=== PATIENT | male | born 1985 | race Caucasian/White ===

== ENCOUNTER 2022-12-01 20:31 | Emergency (ER) | payer MEDICAID, SELFPAY ==
--- NOTE | ~2022-12-01 | CT_ITS ---
EXAMINATION: CT abdomen pelvis wo con DATE: 12/02/2022 00:57 INDICATION: Abdominal pain. TECHNIQUE: Computed tomography (CT) of the abdomen and pelvis was performed without intravenous contr ast. Automated exposure control and iterative reconstruction technique were employed. The dose-length product was 1882.53 mGy-cm. COMPARISON: None. FINDINGS: The visualized portions of the lung bases demonstrate mild atelectasis. No pleural effusion . The heart size is normal. No pericardial effusion. The liver is normal. There are changes of cholec ystectomy. The spleen, pancreas, adrenal glands, and kidneys are normal. There is a filter in the inf erior vena cava. There is a widemouthed ventral hernia containing nonobstructed small bowel. There ar e surgical changes of the colon and small bowel. There are no dilated loops of bowel. There are no pa thologically enlarged lymph nodes. There is no free intraperitoneal fluid. There is mild thoracic spo ndylosis and moderate lumbar spondylosis. There is mild chronic anterior wedging of multiple thoracic vertebral bodies. IMPRESSION: 1. Widemouthed ventral hernia containing nonobstructed small bowel. Reviewed, dictated and finalized at location A.
[2022-12-01 20:36] VITALS: BP 137/79; PULSE 97; RESP 15; TEMP 36.4; O2SAT 100
[2022-12-01 21:04] LABS: Basophils Percent Auto 0.1 % (0.2-1.2); Eosinophils Absolute Auto 0.1 K/mm3 (0-0.3); Eosinophils Percent Auto 0.5 % (0-4.4); Hemoglobin 10.6 g/dL (14.0-18.0); Immature Granulocyte Absolute 0.16 K/mm3 (0.00-0.031); Immature Granulocyte Percent A 1.4 % (0-0.5); Immature Platelet Fraction Pct 8.9 % (0.9-11.2); Lymphocytes Absolute Auto 1.49 K/mm3 (0.9-3.2); Lymphocytes Percent Auto 13.2 % (18.3-44.2); Mean Corpuscular HGB Conc 28.6 g/dl (32-36); Mean Corpuscular Hemoglobin 20.9 pg (26-34); Mean Corpuscular Volume 72.8 fl (80-100); Monocytes Absolute Auto 0.7 K/mm3 (0.1-0.6); Neutrophils Absolute Auto 8.9 K/mm3 (1.3-6.7); Neutrophils Percent Auto 78.8 % (45.5-73.1); Platelet Count Result 118 k/mm3 (150-375); Red Blood Count 5.08 M/mm3 (4.6-6.20); Red Cell Distribution Width 22.5 % (11.5-14.5); White Blood Count 11.3 K/mm3 (4.5-10.0)
[2022-12-01 21:11] LABS: Appearance Urine Clear (Clear); Bacteria Urine None Seen /hpf; Bilirubin Urine Negative (Negative); Blood Urine Negative (Negative); Color Urine Yellow (Yellow); Glucose Urine UA 3+ mg/dL (Negative); Ketones Urine Negative (Negative); Leukocyte Esterase Ur Negative LEU/UL (Negative); Nitrate Urine Negative (Negative); Non Pathogenic Casts 0-2; Protein Urine Trace mg/dL (Negative); RBC Urine 0-2 /hpf (0-2); Squamous Epithelial Cell Urine None seen /hpf (Few); Urobilinogen Urine 0.2 mg/dL (<2.0); WBC Urine 0-5 /hpf; pH Urine 5.5 (5.0-9.0)
[2022-12-01 21:13] LABS: Alanine Aminotransferase 37 U/L (6-50); Albumin Level 4.2 g/dL (3.5-5.1); Alkaline Phosphatase 150 U/L (38-126); Anion Gap 8 mmol/L (8-16); Aspartate Amino Transferase 25 U/L (17-59); Bilirubin,Total 0.5 mg/dL (0.2-1.3); Blood Urea Nitrogen 17 mg/dL (9-20); Calcium 8.5 mg/dL (8.4-10.2); Carbon Dioxide 25 mmol/L (22-30); Chloride 101 mmol/L (98-107); Estimated CRCL calculation 131 ml/min; Estimated Glomerular Filt Rate > 60; Glucose 268 mg/dL (65-110); Lipase 290 U/L (23-300); Potassium 3.6 mmol/L (3.4-5.0); Sodium 134 mmol/L (137-145)
[2022-12-01 21:16] LABS: Add Urine Microscopic? YES; Specific Grav Ur 1.041 (1.001-1.035)
[2022-12-01 21:20] LABS: Platelet Estimate Decreased (Adequate)
[2022-12-01 21:21] LABS: Anisocytosis 3+ (NORMAL); Hypochromasia 1+ (NORMAL); Schistocytes None Seen (NORMAL)
--- NOTE | 2022-12-02 00:31 | PC.NURSE ---
See downtime charting regarding meds given or pulled prior to 2315 on 12/01/22.
--- NOTE | 2022-12-02 00:31 | PC.NURSE ---
This RN took report from Arabella SMYTH and assumed care of pt @[id number].
[2022-12-02 00:33] VITALS: BP 134/79; PULSE 101; RESP 14; O2SAT 100
--- NOTE | 2022-12-02 00:37 | ED.GENADULT ---
HPI - General Adult General Chief complaint: Abdominal Pain <Gustavo King PA-C - Last Filed: 12/02/22 04:14> Stated complaint: diarrhea/ulcerative colitis <Gustavo King PA-C - Last Filed: 12/02/22 04:14> Time Seen by Provider: 12/02/22 00:33 <Gustavo King PA-C - Last Filed: 12/02/22 04:14> Source: patient <Gustavo King PA-C - Last Filed: 12/02/22 04:14> Mode of arrival: ambulatory <DORCAS Barnett Last Filed: 12/02/22 04:14> Limitations: no limitations <Gustavo King PA-C - Last Filed: 12/02/22 04:14> History of Present Illness HPI narrative: This is a 37-year-old male with PMH of insulin-dependent diabetes, UC who presents to the ED with chief complaint of abdominal pain and N/V/D beginning 8 hours prior to arrival. 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 He reports 20 episodes of bowel movements that are loose. He reports a little bit of blood on the toilet paper during the last bowel movement. Reports multiple episodes of vomiting without hematemesis. reports abdominal pain is primarily on the right side and does not radiate. Past surgical history of colectomy, appendectomy <DORCAS Barnett Last Filed: 12/02/22 04:14> Related Data Allergies/adverse reactions: Allergies Allergy/AdvReac Type Severity Reaction Status Date / Time iohexol Allergy Severe Anaphylaxis Verified 12/02/22 00:58 [From contrast - CT, X-RAY] Sulfa (Sulfonamide Allergy Dyspnea / Verified 12/02/22 01:02 Antibiotics) SOB dicyclomine [From Bentyl] AdvReac Dyspnea / Verified 12/02/22 01:02 SOB ketorolac [From Toradol] AdvReac Dyspnea / Verified 12/02/22 01:02 SOB lorazepam [From Ativan] AdvReac Dyspnea / Verified 12/02/22 01:02 SOB meperidine [From Demerol] AdvReac Dyspnea / Verified 12/02/22 01:02 SOB metoclopramide [From Reglan] AdvReac Dyspnea / Verified 12/02/22 01:02 SOB prochlorperazine AdvReac Dyspnea / Verified 12/02/22 01:02 [From Compazine] SOB promethazine [From Phenergan] AdvReac Dyspnea / Verified 12/02/22 01:02 SOB <Gustavo King PA-C - Last Filed: 12/02/22 04:14> Review of Systems Review of Systems: All systems as dictated in HPI <Gustavo King PA-C - Last Filed: 12/02/22 04:14> Exam Narrative: GENERAL: Well-appearing, well-nourished, and in no acute distress. HEAD: Normocephalic, atraumatic. EYES: PERRLA and EOMI. ENT: Nares clear, no rhinorrhea or epistaxis. Mucous membranes moist. Oropharynx without tonsillar hypertrophy exudate or other lesions. NECK: Supple. No adenopathy or masses. CHEST: No respiratory distress. Clear to auscultation. No wheezes rales or rhonchi HEART: Regular rate and rhythm. No murmur heard. Normal peripheral pulses. ABDOMEN: Obese abdomen. Mild tenderness in the periumbilical abdomen. Soft, otherwise nontender, nondistended, normal active bowel sounds. MSK: Normal range of motion. No edema. SKIN: Warm, dry, no rash. NEURO: Alert and oriented x3. No focal deficits. PSYCH: Normal mood and affect. <Gustavo King PA-C - Last Filed: 12/02/22 04:14> Course SCRUM COACH/PA Physician Supervision This is a was performed by both a physician and an APC. I performed all aspects of the MDM as documented w/ the following additions: 37-year-old male with ulcerative colitis and chronic abdominal pain presenting for abdominal pain. CT negative. Patient improved with symptomatic treatment. Patient discharged with outpatient follow-up.All questions answered. Patient in agreement w/ disposition. <Myron Mora MD - Last Filed: 12/04/22 03:38> Vital Signs Vital signs: Vital Signs Temperature 97.6 F 12/01/22 20:36 Pulse Rate 97 12/01/22 20:36 Respiratory Rate 15 12/01/22 20:36 Blood Pressure 137/79 12/01/22 20:36 Pulse Oximetry 100 12/01/22 20:36 Oxygen Delivery Room Air 12/01/22 20
[2022-12-02] MEDS: HYDROmorphone HCL INJ (*CRX) 1 MG/ML SYR 0.5 MG IV PUSH ×2 (01:02→03:01)
[2022-12-02] MEDS: SODIUM CHLORIDE 0.9% IV 1,000 ML 999 ML IV CONT (01:03)
[2022-12-02] MEDS: diphenhydrAMINE HCl INJ 50 MG/ML VIAL 25 MG IV PUSH ×2 (01:03→03:01)
[2022-12-02] MEDS: ONDANSETRON INJ 4 MG/2 ML VIAL IV PUSH ×2 (01:03→03:01)
[2022-12-02 04:02] VITALS: BP 130/83; PULSE 97; RESP 15; O2SAT 100
== END 2022-12-02 05:25 | disposition home or self-care (01) ==
PROVIDERS: Emergency Medicine; Emergency Provider Physician Assistant
DX: K58.9 Irritable bowel syndrome, unspecified (principal); E11.9 Type 2 diabetes mellitus without complications; Z90.49 Acquired absence of other specified parts of digestive tract; K43.9 Ventral hernia without obstruction or gangrene
CPT/HCPCS: 36415; 74176; 80053; 81001; 83690; 85025; 85055; 96361; 96374; 96375; 96376; 99285; J1170; J1200; J2405; J7030

== ENCOUNTER 2022-12-04 21:40 | Emergency (ER) | payer MEDICAID, SELFPAY ==
--- NOTE | ~2022-12-04 | CT_ITS ---
EXAMINATION: CT abdomen pelvis wo con DATE: 12/05/2022 00:55 INDICATION: Abdominal pain. TECHNIQUE: Computed tomography (CT) of the abdomen and pelvis was performed without intravenous contr ast. Automated exposure control and iterative reconstruction technique were employed. The dose-length product was 1783.54 mGy-cm. COMPARISON: CT abdomen and pelvis 12/02/2022 FINDINGS: The visualized portions of the lung bases demonstrate mild atelectasis. No pleural effusion . The heart size is normal. No pericardial effusion. The liver is normal. There are changes of cholec ystectomy. The spleen, pancreas, adrenal glands, and kidneys are normal. There is a filter in the inf erior vena cava. There is a widemouthed ventral hernia containing nonobstructed small bowel. There ar e surgical changes of the bowel. There are no pathologically enlarged lymph nodes. There is no free i ntraperitoneal fluid. There is mild thoracic and lumbar spondylosis. There is mild chronic anterior w edging of T11 and T12 vertebral bodies. IMPRESSION: 1. Widemouthed ventral hernia containing nonobstructed small bowel. Reviewed, dictated and finalized at location A.
[2022-12-04 21:44] VITALS: BP 121/92; PULSE 121; RESP 16; TEMP 36.2; O2SAT 100
--- NOTE | 2022-12-04 21:48 | ECG_ITS ---
Measurements Intervals [place] Rate: 121 P: 51 NC: 166 QRS: 22 QRSD: 112 T: 55 QT: 309 QTc: 440 Interpretive Statements SINUS TACHYCARDIA OTHERWISE NORMAL eCG NO PREVIOUS ECG AVAILABLE FOR COMPARISON Electronically Signed On 12-05-2022 14:41:49 CDT by Syed Leggett M.D.
--- NOTE | 2022-12-04 23:48 | ED.ABDPAIN ---
HPI - Abdominal Pain General Chief Complaint: Abdominal Pain Stated Complaint: abd pain Time Seen by Provider: 12/04/22 23:31 History of Present Illness HPI narrative: 37-year-old male with history of ulcerative colitis presented the emergency department for evaluation of worsening lower abdominal pain. 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 Patient was seen in emergency department few days ago for abdominal pain. Patient had a negative work-up at that time. Patient does have prednisone that was prescribed by his GI physician but states he is having excessive nausea and vomiting and is unable to keep any of the medications down. Patient presents to the ED seeking rehydration pain control and nausea control. Patient does have follow-up scheduled with his GI physician tomorrow in [facility] Related Data Allergies Allergy/AdvReac Type Severity Reaction Status Date / Time iohexol Allergy Severe Anaphylaxis Verified 12/04/22 21:43 [From contrast - CT, X-RAY] Sulfa (Sulfonamide Allergy Dyspnea / Verified 12/04/22 21:43 Antibiotics) SOB dicyclomine [From Bentyl] AdvReac Dyspnea / Verified 12/04/22 21:43 SOB ketorolac [From Toradol] AdvReac Dyspnea / Verified 12/04/22 21:43 SOB lorazepam [From Ativan] AdvReac Dyspnea / Verified 12/04/22 21:43 SOB meperidine [From Demerol] AdvReac Dyspnea / Verified 12/04/22 21:43 SOB metoclopramide [From Reglan] AdvReac Dyspnea / Verified 12/04/22 21:43 SOB prochlorperazine AdvReac Dyspnea / Verified 12/04/22 21:43 [From Compazine] SOB promethazine [From Phenergan] AdvReac Dyspnea / Verified 12/04/22 21:43 SOB Review of Systems Review of Systems: All systems reviewed & are unremarkable except as noted in HPI and below Exam Narrative: APPEARANCE: Well appearing, no pain, no distress, well-nourished. HEAD: normocephalic, atraumatic. EYES: PERRLA/EOMI, conjunctivae clear. NOSE: Normal no drainage NECK: Supple. No adenopathy, no masses. RESPIRATORY: Airway patent, respirations nonlabored. Clear to auscultation bilaterally, no rales, rhonchi, wheezing. CARDIOVASCULAR: Regular rate and rhythm without murmurs rubs or gallops. ABDOMINAL: Right lower quadrant tenderness to palpation MUSCULOSKELETAL: Moves all extremities. Strength/ROM intact, No edema, No calf tenderness. NEURO: Alert. Cranial nerves II through XII intact. Grossly intact SKIN: Warm, dry. Normal Color Course Course Emergency Course: 37-year-old male with history of ulcerative colitis presented the ED for evaluation of persistent right lower quadrant pain. Patient was treated with IV Dilaudid, IV Zofran, IV normal saline for rehydration pain and nausea. Patient is afebrile but does have a mild leukocytosis of 11.1 but patient is currently taking steroids. Patient had a slightly elevated glucose but states that his blood sugars usually run around 150. UA showed no evidence of infection. Patient prefers to leave prior to his CT resulted. Patient states he is leaving so that he can have follow-up with his GI physician this morning. Patient was aware of the risk of leaving prior to his CT being resulted. Vital Signs Vital signs: Vital Signs Temperature 97.2 F L 12/04/22 21:44 Pulse Rate 121 H 12/04/22 21:44 Respiratory Rate 16 12/04/22 21:44 Blood Pressure 121/92 H 12/04/22 21:44 Pulse Oximetry 100 12/04/22 21:44 Oxygen Delivery Room Air 12/04/22 21:44 Temperature 97.2 F L 12/04/22 21:44 Pulse Rate 71 12/05/22 04:52 Respiratory Rate 22 H 12/05/22 04:52 Blood Pressure 136/96 H 12/05/22 04:52 Pulse Oximetry 100 12/05/22 04:52 Oxygen Delivery Room Air 12/04/22 21:44 MDM - Abdominal Pain Differential Diagnosis Differential diagnosis: Likely abdominal pain, acute appendicitis, constipation, diverticulitis, gastroenteritis, pancreatitis and small bowel obstruction Lab Data Attestation: I reviewe
[2022-12-05 00:18] LABS: Basophils Percent Auto 0.1 % (0.2-1.2); Eosinophils Absolute Auto 0.1 K/mm3 (0-0.3); Eosinophils Percent Auto 1.2 % (0-4.4); Hematocrit 36.4 % (42.0-52.0); Hemoglobin 10.2 g/dL (14.0-18.0); Immature Granulocyte Absolute 0.07 K/mm3 (0.00-0.031); Immature Granulocyte Percent A 0.6 % (0-0.5); Immature Platelet Fraction Pct 9.4 % (0.9-11.2); Lymphocytes Absolute Auto 1.04 K/mm3 (0.9-3.2); Lymphocytes Percent Auto 9.4 % (18.3-44.2); Mean Corpuscular Hemoglobin 20.9 pg (26-34); Mean Corpuscular Volume 74.4 fl (80-100); Monocytes Absolute Auto 0.5 K/mm3 (0.1-0.6); Monocytes Percent Auto 4.4 % (2.6-8.5); Neutrophils Absolute Auto 9.3 K/mm3 (1.3-6.7); Neutrophils Percent Auto 84.3 % (45.5-73.1); Platelet Count Result 104 k/mm3 (150-375); Red Blood Count 4.89 M/mm3 (4.6-6.20); Red Cell Distribution Width 22.5 % (11.5-14.5); White Blood Count 11.1 K/mm3 (4.5-10.0)
[2022-12-05] MEDS: HYDROmorphone HCL INJ (*CRX) 1 MG/ML SYR IV PUSH ×2 (00:24→01:49)
[2022-12-05 00:25] LABS: Alanine Aminotransferase 50 U/L (6-50); Albumin Level 3.4 g/dL (3.5-5.1); Alkaline Phosphatase 153 U/L (38-126); Anion Gap 3 mmol/L (8-16); Aspartate Amino Transferase 30 U/L (17-59); Bilirubin,Total 0.6 mg/dL (0.2-1.3); Blood Urea Nitrogen 12 mg/dL (9-20); Calcium 8.5 mg/dL (8.4-10.2); Carbon Dioxide 25 mmol/L (22-30); Chloride 104 mmol/L (98-107); Estimated Glomerular Filt Rate > 60; Glucose 171 mg/dL (65-110); Lipase 106 U/L (23-300); Potassium 4.6 mmol/L (3.4-5.0); Sodium 132 mmol/L (137-145)
[2022-12-05 00:26] LABS: Lactic Acid Reflex 1.9 mmol/L (0.7-2.0)
[2022-12-05] MEDS: ONDANSETRON INJ 4 MG/2 ML VIAL IV PUSH ×3 (00:27→04:36)
[2022-12-05] MEDS: diphenhydrAMINE HCl INJ 50 MG/ML VIAL 25 MG IV PUSH (00:29)
[2022-12-05] MEDS: methylPREDNISolone SOD SUCC 125 MG VIAL IV PUSH (00:31)
[2022-12-05 00:33] LABS: Anisocytosis 2+ (NORMAL); Hypochromasia 1+ (NORMAL); Ovalocytes 1+ (NORMAL); Platelet Estimate Decreased (Adequate)
[2022-12-05 00:34] LABS: Schistocytes None Seen (NORMAL)
[2022-12-05] MEDS: SODIUM CHLORIDE 0.9% IV 1,000 ML 999 ML IV CONT (00:34)
[2022-12-05 02:05] LABS: Appearance Urine Clear (Clear); Bacteria Urine None Seen /hpf; Bilirubin Urine Negative (Negative); Blood Urine Negative (Negative); Color Urine Yellow (Yellow); Glucose Urine UA Negative (Negative); Ketones Urine Negative (Negative); Leukocyte Esterase Ur Negative LEU/UL (Negative); Nitrate Urine Negative (Negative); Non Pathogenic Casts 0-2; Protein Urine Trace mg/dL (Negative); RBC Urine 0-2 /hpf (0-2); Specific Grav Ur 1.017 (1.001-1.035); Squamous Epithelial Cell Urine Occasional /hpf (Few); Urobilinogen Urine 0.2 mg/dL (<2.0); pH Urine 5.5 (5.0-9.0)
[2022-12-05 02:09] LABS: Add Urine Microscopic? YES
[2022-12-05 03:16] LABS: Glucose Point of Care 189 mg/dl (65-105)
[2022-12-05] MEDS: HYDROmorphone HCL INJ (*CRX) 1 MG/ML SYR 0.5 MG IV PUSH (04:36)
[2022-12-05 04:52] VITALS: BP 136/96; PULSE 71; RESP 22; O2SAT 100
== END 2022-12-05 04:52 | disposition home or self-care (01) ==
PROVIDERS: Emergency Provider Emergency Medicine
DX: K51.90 Ulcerative colitis, unspecified, without complications (principal)
CPT/HCPCS: 36415; 74176; 80053; 81001; 82948; 83605; 83690; 85025; 85055; 87086; 93005; 96361; 96374; 96375; 96376; 99284; J1170; J1200; J2405; J2930; J7030

== ENCOUNTER 2023-01-27 18:50 | Emergency (ER) | payer MEDICAID, SELFPAY ==
--- NOTE | ~2023-01-27 | XR_ITS ---
EXAMINATION: XR chest 2V DATE: 01/27/2023 19:37 INDICATION: Shortness of breath. TECHNIQUE: Frontal and lateral views of the chest were obtained. COMPARISON: CT abdomen and pelvis 02/04/2023 FINDINGS: There is no pneumonia, pleural effusion, or pneumothorax. The heart size is normal. Surgica l clips in the right upper quadrant are likely from cholecystectomy. IMPRESSION: 1. No acute cardiopulmonary disease. Reviewed, dictated and finalized at location E.
--- NOTE | 2023-01-27 18:54 | ECG_ITS ---
Measurements Intervals [place] Rate: 102 P: 40 VA: 160 QRS: 26 QRSD: 104 T: 61 QT: 349 QTc: 455 Interpretive Statements SINUS TACHYCARDIA BASELINE ARTIFACT BORDERLINE ECG COMPARED TO ECG 12/04/2022 21:49:37 NO SIGNIFICANT CHANGES Electronically Signed On 01-28-2023 8:55:42 CDT by Errol Ulloa M.D.
[2023-01-27 19:04] VITALS: BP 145/93; PULSE 99; RESP 20; TEMP 37; O2SAT 100
[2023-01-27 20:02] VITALS: PULSE 93
[2023-01-27 20:03] VITALS: O2SAT 100
[2023-01-27 20:12] LABS: Basophils Absolute Auto 0.1 K/mm3 (0.0-0.1); Basophils Percent Auto 0.5 % (0.2-1.2); Eosinophils Absolute Auto 0.3 K/mm3 (0-0.3); Eosinophils Percent Auto 2.4 % (0-4.4); Hematocrit 37.7 % (42.0-52.0); Hemoglobin 10.4 g/dL (14.0-18.0); Immature Granulocyte Absolute 0.05 K/mm3 (0.00-0.031); Immature Granulocyte Percent A 0.4 % (0-0.5); Immature Platelet Fraction Pct 9.4 % (0.9-11.2); Lymphocytes Absolute Auto 1.11 K/mm3 (0.9-3.2); Lymphocytes Percent Auto 9.6 % (18.3-44.2); Mean Corpuscular HGB Conc 27.6 g/dl (32-36); Mean Corpuscular Hemoglobin 21.1 pg (26-34); Mean Corpuscular Volume 76.5 fl (80-100); Mean Platelet Volume 11.6 fl (7.4-10.4); Monocytes Absolute Auto 0.6 K/mm3 (0.1-0.6); Monocytes Percent Auto 5.3 % (2.6-8.5); Neutrophils Absolute Auto 9.5 K/mm3 (1.3-6.7); Neutrophils Percent Auto 81.8 % (45.5-73.1); Platelet Count Result 233 k/mm3 (150-375); Red Blood Count 4.93 M/mm3 (4.6-6.20); White Blood Count 11.6 K/mm3 (4.5-10.0)
[2023-01-27 20:19] LABS: Alanine Aminotransferase 24 U/L (6-50); Alkaline Phosphatase 147 U/L (38-126); Anion Gap 9 mmol/L (8-16); Aspartate Amino Transferase 22 U/L (17-59); Bilirubin,Total 0.6 mg/dL (0.2-1.3); Blood Urea Nitrogen 7 mg/dL (9-20); Calcium 8.8 mg/dL (8.4-10.2); Carbon Dioxide 25 mmol/L (22-30); Chloride 103 mmol/L (98-107); Estimated CRCL calculation 186 ml/min; Estimated Glomerular Filt Rate > 60; Glucose 137 mg/dL (65-110); Potassium 3.3 mmol/L (3.4-5.0); Sodium 137 mmol/L (137-145)
[2023-01-27 20:23] VITALS: BP 128/82; PULSE 93; RESP 15; TEMP 36.6; O2SAT 100
[2023-01-27 20:25] LABS: Hypochromasia 1+ (NORMAL); Ovalocytes 1+ (NORMAL); Platelet Estimate Adequate (Adequate); Poikilocytosis 1+ (NORMAL); Schistocytes None Seen (NORMAL)
--- NOTE | 2023-01-27 20:29 | ED.GENADULT ---
HPI - General Adult General Chief complaint: Abdominal Pain Stated complaint: SOB Time Seen by Provider: 01/27/23 20:07 Source: patient Mode of arrival: ambulatory Limitations: no limitations History of Present Illness HPI narrative: This is a 38-year-old male with PMH of IBD presents to the ED with chief complaint of abdominal pain beginning yesterday evening and worsening this morning. Reports that in the last day he has had over 20 bouts of diarrhea. He reports that this feels very similar to past colitis flares. Reports several episodes of vomiting and he is currently nauseous as well. Reports his pain is all across the lower abdomen and worse in the right lower quadrant. He has abdominal surgical history of subtotal colectomy and does not have an appendix anymore. Denies fevers, chills, chest pain, shortness of breath, cough, urinary problems. Reports this feels almost identical to past UC flares and would like to avoid imaging if possible Related Data Allergies Allergy/AdvReac Type Severity Reaction Status Date / Time iohexol Allergy Severe Anaphylaxis Verified 12/04/22 21:43 [From contrast - CT, X-RAY] Sulfa (Sulfonamide Allergy Dyspnea / Verified 12/04/22 21:43 Antibiotics) SOB dicyclomine [From Bentyl] AdvReac Dyspnea / Verified 12/04/22 21:43 SOB ketorolac [From Toradol] AdvReac Dyspnea / Verified 12/04/22 21:43 SOB lorazepam [From Ativan] AdvReac Dyspnea / Verified 12/04/22 21:43 SOB meperidine [From Demerol] AdvReac Dyspnea / Verified 12/04/22 21:43 SOB metoclopramide [From Reglan] AdvReac Dyspnea / Verified 12/04/22 21:43 SOB prochlorperazine AdvReac Dyspnea / Verified 12/04/22 21:43 [From Compazine] SOB promethazine [From Phenergan] AdvReac Dyspnea / Verified 12/04/22 21:43 SOB Review of Systems Review of Systems: All systems as dictated in HPI Exam Narrative: GENERAL: Well-appearing, well-nourished, and in no acute distress. HEAD: Normocephalic, atraumatic. EYES: PERRLA and EOMI. ENT: Nares clear, no rhinorrhea or epistaxis. Mucous membranes moist. Oropharynx without tonsillar hypertrophy exudate or other lesions. NECK: Supple. No adenopathy or masses. CHEST: No respiratory distress. Clear to auscultation. No wheezes rales or rhonchi HEART: Regular rate and rhythm. No murmur heard. Normal peripheral pulses. ABDOMEN: Moderate right lower quadrant tenderness present. Soft, otherwise nontender, nondistended, normal active bowel sounds. MSK: Normal range of motion. No edema. SKIN: Warm, dry, no rash. NEURO: Alert and oriented x3. No focal deficits. PSYCH: Normal mood and affect. Course Vital Signs Vital signs: Vital Signs Temperature 98.6 F 01/27/23 19:04 Pulse Rate 99 01/27/23 19:04 Respiratory Rate 20 01/27/23 19:04 Blood Pressure 145/93 H 01/27/23 19:04 Pulse Oximetry 100 01/27/23 19:04 Oxygen Delivery Room Air 01/27/23 19:04 Temperature 98 F 01/27/23 23:38 Pulse Rate 83 01/27/23 23:38 Respiratory Rate 15 01/27/23 23:38 Blood Pressure 128/85 01/27/23 23:38 Pulse Oximetry 100 01/27/23 23:38 Oxygen Delivery Room Air 01/27/23 20:03 Medical Decision Making MDM Narrative Medical decision making narrative: This is a 38-year-old male with PMH of UC who presents for chief complaint of possible UC flare. Reports that this feels identical to flares he has had in the past. Vitals are normal. He is afebrile. Exam shows right lower quadrant tenderness. He has had a subtotal colectomy in the past. To avoid CT imaging and I feel this is very reasonable. Abdomen is soft and not guarding. Lab work is largely unremarkable. He does have chronic appearing anemia. Chest x-ray is normal. He improved with Dilaudid, Zofran, Benadryl, fluids and steroids here. He will get in touch with his GI doctor soon. He feels comfortable going home. Pt will be discharged in stable condition. Return precautions
[2023-01-27] MEDS: SODIUM CHLORIDE 0.9% IV 1,000 ML 999 ML IV CONT (21:04)
[2023-01-27] MEDS: ONDANSETRON INJ 4 MG/2 ML VIAL IV PUSH ×2 (21:05→22:05)
[2023-01-27] MEDS: methylPREDNISolone SOD SUCC 40 MG VIAL IV PUSH (21:06)
[2023-01-27] MEDS: HYDROmorphone HCL INJ (*CRX) 1 MG/ML SYR IV PUSH (21:06)
[2023-01-27 22:03] VITALS: BP 139/84; PULSE 90; RESP 16; O2SAT 100
[2023-01-27] MEDS: HYDROmorphone HCL INJ (*CRX) 1 MG/ML SYR IM (22:05)
[2023-01-27] MEDS: diphenhydrAMINE HCl INJ 50 MG/ML VIAL IV PUSH (22:47)
[2023-01-27] MEDS: HYDROmorphone HCL INJ (*CRX) 1 MG/ML SYR 0.5 MG IV PUSH (22:48)
[2023-01-27 23:38] VITALS: BP 128/85; PULSE 83; RESP 15; TEMP 36.6; O2SAT 100
== END 2023-01-27 23:40 | disposition home or self-care (01) ==
PROVIDERS: Emergency Medicine; Emergency Provider Physician Assistant
DX: K51.90 Ulcerative colitis, unspecified, without complications (principal); R00.0 Tachycardia, unspecified
CPT/HCPCS: 36415; 71046; 80053; 85025; 85055; 93005; 96361; 96372; 96374; 96375; 96376; 99284; J1170; J1200; J2405; J2920; J7030

== ENCOUNTER 2023-02-12 18:43 | Emergency (ER) | payer MEDICAID, SELFPAY ==
--- NOTE | ~2023-02-12 | CT_ITS ---
EXAMINATION: CT abdomen pelvis wo con DATE: 02/12/2023 21:40 INDICATION: Abdominal pain TECHNIQUE: Computed tomography (CT) of the abdomen and pelvis was performed without intravenous contr ast. The dose-length product was 1790.17 mGy-cm. Automated exposure control and iterative reconstruction technique were employed. COMPARISON: CT dated 12/05/2022 FINDINGS: Lung bases are unremarkable. Heart size normal. No significant pleural or pericardial effus ion. There is a ventral abdominal wall hernia containing small bowel with air-fluid levels. Partial o bstruction secondary to adhesions not excluded. Status post cholecystectomy. The liver, spleen, pancr eas, adrenal glands and kidneys are unremarkable. There is an IVC filter present. Status post cholecy stectomy. There is a surgical anastomosis of the rectosigmoid junction. Moderate distal colonic fecal loading. There is thickening of the distal colon. No significant surrounding inflammatory change. IMPRESSION: 1. Thickening of the distal colon near the rectosigmoid anastomosis, nonspecific. Cannot exclude coli tis. 2: Stable appearance to [place] ventral hernia. There is insinuated small bowel with air-fluid lev els. Cannot exclude partial obstruction secondary to adhesions. Reviewed, dictated and finalized at location A. IMPRESSION: 1. Thickening of the distal colon near the rectosigmoid anastomosis, nonspecifi c. Cannot exclude colitis. 2: Stable appearance to [place] ventral hernia. There is insinuated small elder wel with air-fluid levels. Cannot exclude partial obstruction secondary to adhe sions.
[2023-02-12 18:44] VITALS: BP 125/82; PULSE 110; RESP 20; TEMP 36.3; O2SAT 100
--- NOTE | 2023-02-12 20:32 | ED.ABDPAIN ---
HPI - Abdominal Pain General Chief Complaint: Abdominal Pain Stated Complaint: abd pain Time Seen by Provider: 02/12/23 20:24 History of Present Illness HPI narrative: Patient is a 38 year old male with history of UC, status post total colectomy followed by J-pouch creation performed in 2008 at [place] here with abdominal pain. Patient states that he was seen here around 2 weeks ago, was given some symptomatic treatment and discharged home. He states that he saw his GI doctor the next day and was scoped with evidence of pouchitis/UC flare. He was started on 80 mg of prednisone daily. He was initially feeling quite a bit better however he then started feeling poorly again. He typically has 8-10 loose bowel movements daily, history of dumping syndrome. He has recently been having more than 20 bowel movements daily, he had 22 bowel movements today. 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 He denies any blood or mucus within the stool. He is not on any long-term also UC treatments. He has been in contact with his GI physician and he has an appointment scheduled for tomorrow. He additionally notes that he felt what felt like a hernia in his mid abdomen yesterday, he notes that he laid flat and he pushed the bulge back inside . He has had some pain since that time but it is significantly improved from prior to reduction. No fever or chills. Related Data Allergies Allergy/AdvReac Type Severity Reaction Status Date / Time iohexol Allergy Severe Anaphylaxis Verified 12/04/22 21:43 [From contrast - CT, X-RAY] Sulfa (Sulfonamide Allergy Dyspnea / Verified 12/04/22 21:43 Antibiotics) SOB dicyclomine [From Bentyl] AdvReac Dyspnea / Verified 12/04/22 21:43 SOB ketorolac [From Toradol] AdvReac Dyspnea / Verified 12/04/22 21:43 SOB lorazepam [From Ativan] AdvReac Dyspnea / Verified 12/04/22 21:43 SOB meperidine [From Demerol] AdvReac Dyspnea / Verified 12/04/22 21:43 SOB metoclopramide [From Reglan] AdvReac Dyspnea / Verified 12/04/22 21:43 SOB prochlorperazine AdvReac Dyspnea / Verified 08/24/23 21:43 [From Compazine] SOB promethazine [From Phenergan] AdvReac Dyspnea / Verified 12/04/22 21:43 SOB Review of Systems Review of Systems: All systems reviewed & are unremarkable except as noted in HPI and below Exam Narrative: GENERAL: Well-appearing, well-nourished, and in no acute distress. HEAD: Normocephalic, atraumatic. EYES: PERRLA and EOMI. ENT: Nares clear. Mucous membranes moist. NECK: Supple. CHEST: Clear to auscultation. No respiratory distress. HEART: Regular rate and rhythm. Normal peripheral pulses. ABDOMEN: Multiple midline abdominal scars consistent with prior colectomy and fistular disease, diffuse abdominal tenderness, no rebound or guarding. EXTREMITIES: Normal range of motion. No edema. SKIN: Warm, dry, no rash. NEURO: No focal deficits. Alert and oriented x3. PSYCH: Normal mood and affect. Course Course Emergency Course: Chart review performed. Patient here with N/V, abdominal pain. Last ED visit was 01/27/23, he was seen for abdominal pain and about 20 bouts of diarrhea. They note history of UC. He requested to avoid imaging on that visit, improved with medications for symptoms and was advised to follow up with his GI. Patient seen evaluated, no acute distress. History of ulcerative colitis status post colectomy with J-pouch creation he is currently on a high-dose steroid treatment although he does feel like he is not absorbing the steroids and they are going through his system. Symptomatic treatment as ordered, he does have a GI appointment tomorrow. I did discuss that lab work will likely be unreliable given the fact that he is on steroids we will be unsure if his leukocytosis would be due to infectious symptoms, colitis flare for the steroid use. He is agreeable to CT abdomen pelvis to
[2023-02-12] MEDS: ONDANSETRON INJ 4 MG/2 ML VIAL IV PUSH ×2 (21:19→22:47)
[2023-02-12] MEDS: SODIUM CHLORIDE 0.9% IV 1,000 ML 999 ML IV CONT (21:19)
[2023-02-12] MEDS: HYDROmorphone HCL INJ (*CRX) 1 MG/ML SYR IV PUSH (21:19)
[2023-02-12] MEDS: methylPREDNISolone SOD SUCC 125 MG VIAL IV PUSH (21:19)
[2023-02-12] MEDS: diphenhydrAMINE HCl INJ 50 MG/ML VIAL IV PUSH (21:19)
[2023-02-12 21:23] LABS: Basophils Absolute Auto 0.1 K/mm3 (0.0-0.1); Basophils Percent Auto 0.4 % (0.2-1.2); Eosinophils Absolute Auto 0.2 K/mm3 (0-0.3); Eosinophils Percent Auto 1.5 % (0-4.4); Hematocrit 36.9 % (42.0-52.0); Hemoglobin 10.5 g/dL (14.0-18.0); Immature Granulocyte Absolute 0.12 K/mm3 (0.00-0.031); Immature Granulocyte Percent A 0.9 % (0-0.5); Immature Platelet Fraction Pct 8.8 % (0.9-11.2); Lymphocytes Absolute Auto 1.25 K/mm3 (0.9-3.2); Lymphocytes Percent Auto 9.2 % (18.3-44.2); Mean Corpuscular HGB Conc 28.5 g/dl (32-36); Mean Corpuscular Volume 73.9 fl (80-100); Mean Platelet Volume 10.7 fl (7.4-10.4); Monocytes Absolute Auto 0.5 K/mm3 (0.1-0.6); Monocytes Percent Auto 3.6 % (2.6-8.5); Neutrophils Absolute Auto 11.5 K/mm3 (1.3-6.7); Neutrophils Percent Auto 84.4 % (45.5-73.1); Platelet Count Result 201 k/mm3 (150-375); Red Blood Count 4.99 M/mm3 (4.6-6.20); Red Cell Distribution Width 21.2 % (11.5-14.5); White Blood Count 13.6 K/mm3 (4.5-10.0)
[2023-02-12 21:32] VITALS: BP 140/89; PULSE 98; RESP 20; O2SAT 98
[2023-02-12 21:33] LABS: Hypochromasia 1+ (NORMAL); Platelet Estimate Adequate (Adequate)
[2023-02-12 21:34] LABS: Alanine Aminotransferase 43 U/L (6-50); Albumin Level 4.2 g/dL (3.5-5.1); Alkaline Phosphatase 140 U/L (38-126); Anion Gap 7 mmol/L (8-16); Anisocytosis 1+ (NORMAL); Aspartate Amino Transferase 32 U/L (17-59); Bilirubin,Total 0.6 mg/dL (0.2-1.3); Blood Urea Nitrogen 15 mg/dL (9-20); CRP 1.1 mg/dL (<1.0); Calcium 9.1 mg/dL (8.4-10.2); Carbon Dioxide 26 mmol/L (22-30); Chloride 100 mmol/L (98-107); Estimated CRCL calculation 173 ml/min; Estimated Glomerular Filt Rate > 60; Glucose 115 mg/dL (65-110); Lipase 141 U/L (23-300); Ovalocytes 1+ (NORMAL); Potassium 3.5 mmol/L (3.4-5.0); Schistocytes None Seen (NORMAL); Sodium 133 mmol/L (137-145)
[2023-02-12] MEDS: HYDROmorphone HCL INJ (*CRX) 1 MG/ML SYR 2 MG IV PUSH (22:17)
[2023-02-12 22:18] LABS: Appearance Urine Clear (Clear); Bilirubin Urine Negative (Negative); Blood Urine Negative (Negative); Color Urine Yellow (Yellow); Glucose Urine UA Negative (Negative); Ketones Urine Negative (Negative); Leukocyte Esterase Ur Negative LEU/UL (Negative); Nitrate Urine Negative (Negative); Protein Urine Negative (Negative); Specific Grav Ur 1.018 (1.001-1.035); Urobilinogen Urine 0.2 mg/dL (<2.0)
[2023-02-12 22:36] LABS: Add Urine Microscopic? NO
[2023-02-12 22:51] VITALS: BP 137/93; PULSE 89; RESP 16; O2SAT 100
== END 2023-02-12 23:04 | disposition home or self-care (01) ==
PROVIDERS: Emergency Provider Student in an Organized Health Care Education/Training Program
DX: K52.9 Noninfective gastroenteritis and colitis, unspecified (principal); R10.84 Generalized abdominal pain; K51.90 Ulcerative colitis, unspecified, without complications; K43.9 Ventral hernia without obstruction or gangrene; Z90.49 Acquired absence of other specified parts of digestive tract
CPT/HCPCS: 36415; 74176; 80053; 81003; 83690; 85025; 85055; 86140; 96361; 96374; 96375; 96376; 99284; J1170; J1200; J2405; J2930; J7030

== ENCOUNTER 2023-02-15 20:12 | Emergency (ER) | payer MEDICAID, SELFPAY ==
[2023-02-15] VITALS (7 sets, daily range): BP systolic 117–144; BP diastolic 78–96; PULSE 109–125; RESP 14–22; TEMP 36.8; O2SAT 97–100
--- NOTE | ~2023-02-15 | CT_ITS ---
Non-contrast CT scan of the Abdomen and Pelvis Clinical indication: Abdominal trauma, prior history of ulcerative colitis Technique: 2.5 mm axial scans were obtained through the abdomen and pelvis without intravenous or or al contrast. Dose reduction technique was used on this scan by utilizing automated exposure control a nd iterative reconstruction technique. The dose-length product (DLP) was 1626.95 mGy-cm. COMPARISON: 02/12/2023 Findings: Images through the lung bases reveal no abnormalities. There is no evidence of renal or ureteral calculi. The kidneys and the ureters are nondilated. The liver, spleen, pancreas, and adrenals appear normal. Cholecystectomy clips are noted. IVC filter present. There is no aortic aneurysm. There is no evidence of bowel obstruction. Probable extensive prior colectomy with evidence of prior bowel surgery. No abscess or free air. Stable wide necked hernia at the umbilical region, with bowel loops insinuating into the hernia Images through the pelvis were performed. There is no evidence of ascites or lymphadenopathy. Urinary bladder unremarkable. Prostate gland and seminal vesicles are unremarkable. Impression: No acute abnormality. No change from prior exam. Stable wide necked umbilical hernia with bowel loops insinuating into the hernia. Reviewed, dictated and finalized at location . ST EXAMINER Impression: No acute abnormality. No change from prior exam. Stable wide necked umbilical hernia with bowel loops insinuating into the herni a.
[2023-02-15] MEDS: ONDANSETRON INJ 4 MG/2 ML VIAL IV PUSH (21:20)
[2023-02-15] MEDS: HYDROmorphone HCL INJ (*CRX) 1 MG/ML SYR IV PUSH ×2 (21:21→22:48)
[2023-02-15 22:01] LABS: Basophils Percent Auto 0.2 % (0.2-1.2); Eosinophils Absolute Auto 0.1 K/mm3 (0-0.3); Eosinophils Percent Auto 0.9 % (0-4.4); Hematocrit 34.8 % (42.0-52.0); Hemoglobin 9.9 g/dL (14.0-18.0); Immature Granulocyte Percent A 0.7 % (0-0.5); Immature Platelet Fraction Pct 10.8 % (0.9-11.2); Lymphocytes Absolute Auto 0.92 K/mm3 (0.9-3.2); Lymphocytes Percent Auto 6.7 % (18.3-44.2); Mean Corpuscular HGB Conc 28.4 g/dl (32-36); Mean Corpuscular Hemoglobin 21.4 pg (26-34); Mean Corpuscular Volume 75.2 fl (80-100); Monocytes Absolute Auto 0.6 K/mm3 (0.1-0.6); Monocytes Percent Auto 4.1 % (2.6-8.5); Neutrophils Percent Auto 87.4 % (45.5-73.1); Platelet Count Result 170 k/mm3 (150-375); Red Blood Count 4.63 M/mm3 (4.6-6.20); Red Cell Distribution Width 22.1 % (11.5-14.5); White Blood Count 13.7 K/mm3 (4.5-10.0)
[2023-02-15 22:10] LABS: Prothrombin Time 13.7 Seconds (11.1-14.7)
[2023-02-15 22:11] LABS: Partial Thromboplastin Time 26.2 SECONDS (22.3-36.8)
[2023-02-15 22:12] LABS: Alanine Aminotransferase 37 U/L (6-50); Albumin Level 3.8 g/dL (3.5-5.1); Alkaline Phosphatase 129 U/L (38-126); Anion Gap 8 mmol/L (8-16); Anisocytosis 1+ (NORMAL); Aspartate Amino Transferase 28 U/L (17-59); Bilirubin,Total 0.5 mg/dL (0.2-1.3); Blood Urea Nitrogen 14 mg/dL (9-20); Calcium 8.4 mg/dL (8.4-10.2); Carbon Dioxide 23 mmol/L (22-30); Chloride 103 mmol/L (98-107); Estimated CRCL calculation 124 ml/min; Estimated Glomerular Filt Rate > 60; Glucose 176 mg/dL (65-110); Hypochromasia 1+ (NORMAL); Ovalocytes 1+ (NORMAL); Platelet Estimate Adequate (Adequate); Potassium 3.6 mmol/L (3.4-5.0); Schistocytes None Seen (NORMAL); Sodium 134 mmol/L (137-145)
--- NOTE | 2023-02-16 00:50 | ED.HEATRA ---
HPI - Head Injury General Chief complaint: Trauma Stated complaint: Fall 10 feet approx 3 hrs ago, bloody stool Time Seen by Provider: 02/15/23 20:33 History of Present Illness HPI Narrative: Patient presents the emergency department with his history of ulcerative colitis. Today he had an episode of abdominal trauma. 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 He was walking back when he slipped hitting the lower part of his abdomen on the bumper. He is having lower abdominal discomfort. He has had bloody stools throughout the day. Denies vomiting. States he was just here recently for an ulcerative colitis flare. Is currently nauseous. 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 Patient states he has allergies to most pain medications. Related Data Allergies Allergy/AdvReac Type Severity Reaction Status Date / Time iohexol Allergy Severe Anaphylaxis Verified 02/15/23 20:58 [From contrast - CT, X-RAY] Sulfa (Sulfonamide Allergy Dyspnea / Verified 02/15/23 20:58 Antibiotics) SOB dicyclomine [From Bentyl] AdvReac Dyspnea / Verified 02/15/23 20:58 SOB ketorolac [From Toradol] AdvReac Dyspnea / Verified 02/15/23 20:58 SOB lorazepam [From Ativan] AdvReac Dyspnea / Verified 02/15/23 20:58 SOB meperidine [From Demerol] AdvReac Dyspnea / Verified 02/15/23 20:58 SOB metoclopramide [From Reglan] AdvReac Dyspnea / Verified 02/15/23 20:58 SOB prochlorperazine AdvReac Dyspnea / Verified 02/15/23 20:58 [From Compazine] SOB promethazine [From Phenergan] AdvReac Dyspnea / Verified 02/15/23 20:58 SOB Review of Systems Review of Systems: Negative except what is documented in the HPI Exam Narrative: GENERAL: Well-appearing, well-nourished, and in no acute distress. HEAD: Normocephalic, atraumatic. EYES: PERRLA and EOMI. ENT: Nares clear, no rhinorrhea or epistaxis. Mucous membranes moist. NECK: Supple. CHEST: Clear to auscultation. No respiratory distress. HEART: Regular rate and rhythm. ABDOMEN: Soft, nontender, nondistended. scar noted EXTREMITIES: Normal range of motion. No edema. SKIN: Warm, dry, no rash. NEURO: No focal deficits. Alert and oriented x3. PSYCH: Normal mood and affect. Course Course Emergency Course: Differential diagnosis includes but not limited to ulcerative colitis exacerbation, small bowel injury, pelvic fracture Telemetry ordered due to receiving pain medication to evaluate for dysrhythmias. Evaluated by myself. Rhythm Sinus tach Rate 110 Vital Signs Vital signs: Vital Signs Temperature 36.8 C 02/15/23 20:14 Pulse Rate 123 H 02/15/23 20:14 Respiratory Rate 22 H 02/15/23 20:14 Blood Pressure 144/79 H 02/15/23 20:14 Pulse Oximetry 100 02/15/23 20:14 Temperature 36.8 C 02/15/23 20:14 Pulse Rate 109 H 02/15/23 23:40 Respiratory Rate 14 02/15/23 23:40 Blood Pressure 117/78 02/15/23 23:40 Pulse Oximetry 97 02/15/23 23:40 MDM - Head Injury MDM Narrative Medical decision making narrative: CBC and CMP ordered and reviewed by myself. White blood cell count chronically elevated. Electrolytes unremarkable, blood glucose slightly elevated CT ordered and is negative for any acute findings. No traumatic injury. No signs of ulcerative colitis exacerbation and no fractures. Will DC to home Lab Data 02/15/23 21:18 02/15/23 21:18 Labs: Lab Results 02/15/23 Range/Units 21:18 WBC 13.7 H (4.5-10.0) K/mm3 RBC 4.63 (4.6-6.20) M/mm3 Hgb 9.9 L (14.0-18.0) g/dL Hct 34.8 L (42.0-52.0) % MCV 75.2 L (80-100) fl MCH 21.4 L (26-34) pg MCHC 28.4 L (32-36) g/dl RDW 22.1 H (11.5-14.5) % Plt Count 170 (150-375) k/mm3 MPV Not Reportable Immature Gran % (Auto) 0.7 H (0-0.5) % Neut % (Auto) 87.4 H (45.5-73.1) % Lymph % (Auto) 6.7 L (18.3-44.2) % [place] % (Auto) 4.1 (2.6-8.5)
[2023-02-16 01:00] VITALS: BP 131/88; PULSE 100; RESP 19; O2SAT 97
== END 2023-02-16 01:00 | disposition home or self-care (01) ==
PROVIDERS: Emergency Provider Emergency Medicine
DX: R10.30 Lower abdominal pain, unspecified (principal); W01.0XXA Fall on same level from slipping, tripping and stumbling without subsequent striking against object, initial encounter
CPT/HCPCS: 36415; 74176; 80053; 85025; 85055; 85610; 85730; 86850; 86880; 86900; 86901; 86902; 96374; 96375; 96376; 99284; J1170; J2405

== ENCOUNTER 2023-03-09 19:50 | Emergency (ER) | payer MEDICAID, SELFPAY ==
--- NOTE | ~2023-03-09 | CT_ITS ---
Non-contrast CT scan of the Abdomen and Pelvis Clinical indication: Abdominal pain Technique: 2.5 mm axial scans were obtained through the abdomen and pelvis without intravenous or or al contrast. Dose reduction technique was used on this scan by utilizing automated exposure control a nd iterative reconstruction technique. The dose-length product (DLP) was 1922.82 mGy-cm. COMPARISON: 02/15/2023 Findings: Images through the lung bases reveal no abnormalities. There is no evidence of renal or ureteral calculi. The kidneys and the ureters are nondilated. The liver, spleen, pancreas, and adrenals appear normal. Cholecystectomy clips are present. IVC filte r in place. There is no aortic aneurysm. There is no evidence of bowel obstruction. Probable extensive prior colectomy. There is wide necked v entral hernia containing small bowel loops. Images through the pelvis were performed. There is no evidence of ascites or lymphadenopathy. Urinary bladder unremarkable. No pelvic mass seen. Impression: Wide necked ventral hernia containing several small bowel loops. No bowel obstruction or bowel wall t hickening. Probable prior extensive colectomy. Reviewed, dictated and finalized at location . BPM DEVELOPER Impression: Wide necked ventral hernia containing several small bowel loops. No bowel obstr uction or bowel wall thickening. Probable prior extensive colectomy.
[2023-03-09 20:16] VITALS: BP 148/102; PULSE 125; RESP 22; TEMP 36.9; O2SAT 100
[2023-03-09 20:49] LABS: Basophils Percent Auto 0.2 % (0.2-1.2); Eosinophils Absolute Auto 0.1 K/mm3 (0-0.3); Eosinophils Percent Auto 0.7 % (0-4.4); Hematocrit 36.7 % (42.0-52.0); Hemoglobin 10.3 g/dL (14.0-18.0); Immature Granulocyte Absolute 0.09 K/mm3 (0.00-0.031); Immature Granulocyte Percent A 0.7 % (0-0.5); Lymphocytes Absolute Auto 1.13 K/mm3 (0.9-3.2); Lymphocytes Percent Auto 9.2 % (18.3-44.2); Mean Corpuscular HGB Conc 28.1 g/dl (32-36); Mean Corpuscular Hemoglobin 21.4 pg (26-34); Mean Corpuscular Volume 76.1 fl (80-100); Mean Platelet Volume 10.6 fl (7.4-10.4); Monocytes Absolute Auto 0.5 K/mm3 (0.1-0.6); Monocytes Percent Auto 3.8 % (2.6-8.5); Neutrophils Absolute Auto 10.4 K/mm3 (1.3-6.7); Neutrophils Percent Auto 85.4 % (45.5-73.1); Platelet Count Result 243 k/mm3 (150-375); Red Blood Count 4.82 M/mm3 (4.6-6.20); Red Cell Distribution Width 21.9 % (11.5-14.5); White Blood Count 12.2 K/mm3 (4.5-10.0)
[2023-03-09 20:59] LABS: Alanine Aminotransferase 42 U/L (6-50); Albumin Level 4.1 g/dL (3.5-5.1); Alkaline Phosphatase 139 U/L (38-126); Anion Gap 9 mmol/L (8-16); Aspartate Amino Transferase 38 U/L (17-59); Bilirubin,Total 0.7 mg/dL (0.2-1.3); Blood Urea Nitrogen 15 mg/dL (9-20); Carbon Dioxide 25 mmol/L (22-30); Chloride 101 mmol/L (98-107); Estimated CRCL calculation 152 ml/min; Estimated Glomerular Filt Rate > 60; Glucose 151 mg/dL (65-110); Lipase 156 U/L (23-300); Potassium 3.7 mmol/L (3.4-5.0); Sodium 135 mmol/L (137-145)
[2023-03-09 21:05] LABS: Hypochromasia 1+ (NORMAL); Ovalocytes 1+ (NORMAL); Platelet Estimate Adequate (Adequate); Schistocytes None Seen (NORMAL)
[2023-03-09 23:28] VITALS: BP 143/99; PULSE 97; RESP 18; O2SAT 99
[2023-03-10 02:04] VITALS: BP 134/99; PULSE 99; RESP 22; TEMP 36.6; O2SAT 99
[2023-03-10] MEDS: SODIUM CHLORIDE 0.9% IV 1,000 ML 999 ML IV CONT (02:40)
[2023-03-10] MEDS: ONDANSETRON INJ 4 MG/2 ML VIAL IV PUSH ×2 (02:41→04:30)
[2023-03-10] MEDS: methylPREDNISolone SOD SUCC 125 MG VIAL IV PUSH (02:42)
[2023-03-10] MEDS: MORPHINE SULFATE (*CRX) 4 MG/ML INJ IV PUSH (02:43)
[2023-03-10] MEDS: HYDROmorphone HCL INJ (*CRX) 1 MG/ML SYR IV PUSH ×3 (03:41→05:38)
[2023-03-10 04:22] VITALS: BP 142/84; PULSE 94; RESP 14; O2SAT 99
--- NOTE | 2023-03-10 04:24 | PC.NURSE ---
Patient stated his pain went down to a four, but was coming up again. Patient also requested more Zofran. Notified Dr. Madsen who ordered 4mg Zofran via IVP and 1mg Dilaudid IVP.
--- NOTE | 2023-03-10 05:26 | ED.GENADULT ---
HPI - General Adult General Chief complaint: Abdominal Pain Stated complaint: abd pain, n/v Time Seen by Provider: 03/10/23 02:17 History of Present Illness HPI narrative: A 38-year-old gentleman presents emerged department chief complaint of abdominal pain. Patient reports he has prior history of ulcer colitis and reports that he also has an abdominal hernia. 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 The patient states that he started having pain today and has chronic diarrhea. He also reports that some nausea and vomiting. The patient denies fever reports that he did recently complete a several week course of steroids. Related Data Allergies Allergy/AdvReac Type Severity Reaction Status Date / Time iohexol Allergy Severe Anaphylaxis Verified 02/15/23 20:58 [From contrast - CT, X-RAY] Sulfa (Sulfonamide Allergy Dyspnea / Verified 02/15/23 20:58 Antibiotics) SOB dicyclomine [From Bentyl] AdvReac Dyspnea / Verified 02/15/23 20:58 SOB ketorolac [From Toradol] AdvReac Dyspnea / Verified 02/15/23 20:58 SOB lorazepam [From Ativan] AdvReac Dyspnea / Verified 02/15/23 20:58 SOB meperidine [From Demerol] AdvReac Dyspnea / Verified 02/15/23 20:58 SOB metoclopramide [From Reglan] AdvReac Dyspnea / Verified 02/15/23 20:58 SOB prochlorperazine AdvReac Dyspnea / Verified 02/15/23 20:58 [From Compazine] SOB promethazine [From Phenergan] AdvReac Dyspnea / Verified 02/15/23 20:58 SOB Review of Systems Review of Systems: A 10 system review of systems was completed on the patient and is negative except for what is stated in the HPI. Nursing and ancillary documentation was reviewed. Exam Narrative: GENERAL: Well-appearing, well-nourished, and in no acute distress. HEAD: Normocephalic, atraumatic. EYES: PERRLA and EOMI. ENT: Nares clear, no rhinorrhea or epistaxis. Mucous membranes moist. NECK: Supple. CHEST: Clear to auscultation. No respiratory distress. HEART: Regular rate and rhythm. No murmur heard. Normal peripheral pulses. ABDOMEN: Soft, Diffusely tender, ventral hernia is reducible no signs of incarceration, nondistended, normal active bowel sounds. EXTREMITIES: Normal range of motion. No edema. SKIN: Warm, dry, no rash. NEURO: No focal deficits. Alert and oriented x3. PSYCH: Normal mood and affect. Course Vital Signs Vital signs: Vital Signs Temperature 36.9 C 03/09/23 20:16 Pulse Rate 125 H 03/09/23 20:16 Respiratory Rate 22 H 03/09/23 20:16 Blood Pressure 148/102 H 03/09/23 20:16 Pulse Oximetry 100 03/09/23 20:16 Oxygen Delivery Room Air 03/09/23 20:16 Temperature 36.6 C 03/10/23 02:04 Pulse Rate 94 03/10/23 04:22 Respiratory Rate 14 03/10/23 04:22 Blood Pressure 142/84 H 03/10/23 04:22 Pulse Oximetry 99 03/10/23 04:22 Oxygen Delivery Room Air 03/09/23 20:16 Medical Decision Making MDM Narrative Medical decision making narrative: differential diagnosis is also colitis flare, generalized abdominal pain, viral syndrome, gastroenteritis, incarcerated hernia, laboratory studies were obtained white count 12.2 electrolytes were within normal limits liver enzymes were normal lipase is 156 CT scan of the abdomen pelvis showed no evidence of acute finding patient received IV fluids pain control antiemetics and was given an IV dose of steroids. The patient has an appointment in the morning with his GI specialist. Vital Signs Vital Signs: Vital Signs Temperature 36.9 C 03/09/23 20:16 Pulse Rate 125 H 03/09/23 20:16 Respiratory Rate 22 H 03/09/23 20:16 Blood Pressure 148/102 H 03/09/23 20:16 Pulse Oximetry 100 03/09/23 20:16 Oxygen Delivery Room Air 03/09/23 20:16 Temperature 36.6 C 03/10/23 02:04 Pulse Rate 94 03/10/23 04:22 Respiratory Rate 14 03/10/23 04:22 Blood Pressure 142/84 H 03/10/23 04:22 Pulse Oximetry 99 03/10/23 04:
== END 2023-03-10 05:42 | disposition home or self-care (01) ==
PROVIDERS: Emergency Provider Emergency Medicine
DX: R10.84 Generalized abdominal pain (principal); K43.9 Ventral hernia without obstruction or gangrene
CPT/HCPCS: 36415; 74176; 80053; 83690; 85025; 96361; 96374; 96375; 96376; 99284; J1170; J2270; J2405; J2930; J7030

== ENCOUNTER 2023-03-23 20:21 | Emergency (ER) | payer MEDICAID, SELFPAY ==
[2023-03-23 20:51] VITALS: BP 151/123; PULSE 112; RESP 20; TEMP 36.6; O2SAT 100
[2023-03-23 21:14] LABS: Basophils Percent Auto 0.3 % (0.2-1.2); Eosinophils Absolute Auto 0.1 K/mm3 (0-0.3); Eosinophils Percent Auto 0.6 % (0-4.4); Hematocrit 37.7 % (42.0-52.0); Hemoglobin 10.7 g/dL (14.0-18.0); Immature Granulocyte Absolute 0.07 K/mm3 (0.00-0.031); Immature Granulocyte Percent A 0.6 % (0-0.5); Immature Platelet Fraction Pct 8.5 % (0.9-11.2); Lymphocytes Absolute Auto 1.58 K/mm3 (0.9-3.2); Lymphocytes Percent Auto 13.4 % (18.3-44.2); Mean Corpuscular HGB Conc 28.4 g/dl (32-36); Mean Corpuscular Hemoglobin 21.7 pg (26-34); Mean Corpuscular Volume 76.6 fl (80-100); Mean Platelet Volume 10.6 fl (7.4-10.4); Monocytes Absolute Auto 0.7 K/mm3 (0.1-0.6); Monocytes Percent Auto 5.6 % (2.6-8.5); Neutrophils Absolute Auto 9.4 K/mm3 (1.3-6.7); Neutrophils Percent Auto 79.5 % (45.5-73.1); Platelet Count Result 209 k/mm3 (150-375); Red Blood Count 4.92 M/mm3 (4.6-6.20); Red Cell Distribution Width 22.2 % (11.5-14.5); White Blood Count 11.8 K/mm3 (4.5-10.0)
[2023-03-23 21:25] LABS: Alanine Aminotransferase 31 U/L (6-50); Albumin Level 4.4 g/dL (3.5-5.1); Alkaline Phosphatase 127 U/L (38-126); Anion Gap 8 mmol/L (8-16); Aspartate Amino Transferase 25 U/L (17-59); Bilirubin,Total 0.7 mg/dL (0.2-1.3); Blood Urea Nitrogen 12 mg/dL (9-20); Calcium 8.7 mg/dL (8.4-10.2); Carbon Dioxide 34 mmol/L (22-30); Chloride 95 mmol/L (98-107); Estimated CRCL calculation 127 ml/min; Estimated Glomerular Filt Rate > 60; Glucose 99 mg/dL (65-110); Lipase 96 U/L (23-300); Sodium 137 mmol/L (137-145)
[2023-03-23 21:45] LABS: Platelet Estimate Adequate (Adequate)
[2023-03-23 21:46] LABS: Anisocytosis 3+ (NORMAL); Hypochromasia 1+ (NORMAL); Schistocytes None Seen (NORMAL)
[2023-03-23 22:11] LABS: Appearance Urine Clear (Clear); Bilirubin Urine Negative (Negative); Blood Urine Negative (Negative); Color Urine Yellow (Yellow); Glucose Urine UA Negative (Negative); Ketones Urine Negative (Negative); Leukocyte Esterase Ur Negative LEU/UL (Negative); Nitrate Urine Negative (Negative); Protein Urine Negative (Negative); Specific Grav Ur 1.014 (1.001-1.035); Urobilinogen Urine 0.2 mg/dL (<2.0); pH Urine 6.5 (5.0-9.0)
[2023-03-23 22:22] LABS: Add Urine Microscopic? NO
[2023-03-23 23:00] VITALS: BP 120/65; PULSE 101; RESP 18; O2SAT 100
--- NOTE | 2023-03-23 23:04 | ED.ABDPAIN ---
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 He states he is not from the area is well known to the staff of the emergency department. Normally presents with right lower abdominal pain. Normally CT scans are negative. Today states his pain has been worse when he has had nausea and vomiting. Labs are grossly unremarkable he is in no distress. Vital signs are also stable. Very mild right lower quadrant tenderness on exam. Related Data Allergies Allergy/AdvReac Type Severity Reaction Status Date / Time iohexol Allergy Severe Anaphylaxis Verified 03/23/23 23:03 [From contrast - CT, X-RAY] Sulfa (Sulfonamide Allergy Dyspnea / Verified 03/23/23 23:03 Antibiotics) SOB dicyclomine [From Bentyl] AdvReac Dyspnea / Verified 03/23/23 23:03 SOB ketorolac [From Toradol] AdvReac Dyspnea / Verified 03/23/23 23:03 SOB lorazepam [From Ativan] AdvReac Dyspnea / Verified 03/23/23 23:03 SOB meperidine [From Demerol] AdvReac Dyspnea / Verified 03/23/23 23:03 SOB metoclopramide [From Reglan] AdvReac Dyspnea / Verified 03/23/23 23:03 SOB prochlorperazine AdvReac Dyspnea / Verified 03/23/23 23:03 [From Compazine] SOB promethazine [From Phenergan] AdvReac Dyspnea / Verified 03/23/23 23:03 SOB Review of Systems Review of Systems: Negative except for as documented in the HPI Exam Narrative: GENERAL: Well-appearing, well-nourished, and in no acute distress. HEAD: Normocephalic, atraumatic. EYES: PERRLA and EOMI. ENT: Nares clear, no rhinorrhea or epistaxis. Mucous membranes moist. NECK: Supple. CHEST: Clear to auscultation. No respiratory distress. HEART: Regular rate and rhythm. ABDOMEN: Soft, , nondistended. mild right lower quadrant tenderness, abdominal scars present EXTREMITIES: Normal range of motion. No edema. SKIN: Warm, dry, no rash. NEURO: No focal deficits. Alert and oriented x3. PSYCH: Normal mood and affect. Course Course Emergency Course: no clinical reason to repeat CT scan. Concern for recurrent radiation of patient. He has medication to take for his chronic symptoms. 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 In addition, he has an extensive list of allergies to most medications that would help. He will be discharged advised to continue his home medications. Vital Signs Vital signs: Vital Signs Temperature 36.6 C 03/23/23 20:51 Pulse Rate 112 H 03/23/23 20:51 Respiratory Rate 20 03/23/23 20:51 Blood Pressure 151/123 H 03/23/23 20:51 Pulse Oximetry 100 03/23/23 20:51 Oxygen Delivery Room Air 03/23/23 20:51 Temperature 36.6 C 03/23/23 20:51 Pulse Rate 101 H 03/23/23 23:00 Respiratory Rate 18 03/23/23 23:00 Blood Pressure 120/65 03/23/23 23:00 Pulse Oximetry 100 03/23/23 23:00 Oxygen Delivery Room Air 03/23/23 20:51 MDM - Abdominal Pain Lab Data 03/23/23 21:06 03/23/23 21:06 Labs: Lab Results 03/23/23 03/23/23 Range/Units 21:06 22:01 WBC 11.8 H (4.5-10.0) K/mm3 RBC 4.92 (4.6-6.20) M/mm3 Hgb 10.7 L (14.0-18.0) g/dL Hct 37.7 L (42.0-52.0) % MCV 76.6 L (80-100) fl MCH 21.7 L (26-34) pg MCHC 28.4 L (32-36) g/dl RDW 22.2 H (11.5-14.5) % Plt Count 209 (150-375) k/mm3 MPV 10.6 H (7.4-10.4) fl Immature Gran % (Auto) 0.6 H (0-0.5) % Neut % (Auto) 79.5 H (45.5-73.1) % Lymph % (Auto) 13.4 L (18.3-44.2) % [place] % (Auto) 5.6 (2.6-8.5) % Eos % (Auto) 0.6 (0-4.4) % Baso % (Auto) 0.3 (0.2-1.2) % Lymph # (Auto) 1.58 (0.9-3.2) K/mm3 [place] # (Auto) 0.7 H (0.1-0.6) K/mm3 Eos # (Auto) 0.1 (0-0.3) K/mm3 Baso # (Auto) 0.0 (0.0-0.1) K/mm3 Abs Immat Gran (auto) 0.07 H (0.00-0.031) K/mm3 Absol
[2023-03-23 23:35] VITALS: BP 102/74; PULSE 100; O2SAT 99
== END 2023-03-23 23:35 | disposition home or self-care (01) ==
LOC: ANHED 23:18
PROVIDERS: Emergency Provider Emergency Medicine
DX: R10.31 Right lower quadrant pain (principal)
CPT/HCPCS: 36415; 80053; 81003; 83690; 85025; 85055; 99283

== ENCOUNTER 2023-03-26 17:40 | Emergency (ER) | payer MEDICAID, SELFPAY ==
--- NOTE | ~2023-03-26 | CT_ITS ---
EXAMINATION: CT abdomen pelvis wo con DATE: 03/26/2023 20:46 INDICATION: Abdominal pain TECHNIQUE: Computed tomography (CT) of the abdomen and pelvis was performed with 100 mL Omnipaque-350 intravenous contrast. Automated exposure control and iterative reconstruction technique were employe d. The dose-length product was 2157.39 mGy-cm. COMPARISON: 03/10/2023 FINDINGS: Lung bases are clear. Heart size is normal. No pericardial or pleural effusion. Cholecystectomy clips at the gallbladder fossa. Liver, spleen, pancreas, bilateral adrenal glands and kidneys are normal. Infrarenal IVC filter. Prior bowel surgery with multiple anastomotic suture lines and likely subtotal colectomy. Several loops of nonobstructed small bowel extend into a widemouthed ventral hernia. Blad [place] is normal. No free intraperitoneal gas or fluid. No pathologically enlarged abdominal or pelvic l ymphadenopathy. Mild thoracic and lumbar spondylosis. Chronic mild anterior wedging at T11 and T12. IMPRESSION: 1. Chronic [place] ventral hernia containing nonobstructed small bowel. No acute intra-abdominal/pe lvic process. Reviewed, dictated and finalized at location A. 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 Chronic [place] ventral hernia containing nonobstructed small bowel. No ac santino intra-abdominal/pelvic process.
[2023-03-26 17:44] VITALS: BP 146/93; PULSE 125; RESP 20; TEMP 36.3; O2SAT 100
[2023-03-26] MEDS: SODIUM CHLORIDE 0.9% IV 1,000 ML 999 ML IV CONT (19:33)
[2023-03-26] MEDS: MORPHINE SULFATE (*CRX) 4 MG/ML INJ IV PUSH ×2 (19:33→20:51)
[2023-03-26] MEDS: ONDANSETRON INJ 4 MG/2 ML VIAL IV PUSH ×2 (19:33→22:10)
[2023-03-26 19:42] LABS: Basophils Percent Auto 0.1 % (0.2-1.2); Eosinophils Percent Auto 0.1 % (0-4.4); Hematocrit 35.1 % (42.0-52.0); Hemoglobin 10.2 g/dL (14.0-18.0); Immature Granulocyte Absolute 0.07 K/mm3 (0.00-0.031); Immature Granulocyte Percent A 0.5 % (0-0.5); Lymphocytes Absolute Auto 0.96 K/mm3 (0.9-3.2); Lymphocytes Percent Auto 6.6 % (18.3-44.2); Mean Corpuscular HGB Conc 29.1 g/dl (32-36); Mean Corpuscular Hemoglobin 21.5 pg (26-34); Mean Corpuscular Volume 73.9 fl (80-100); Mean Platelet Volume 10.4 fl (7.4-10.4); Monocytes Absolute Auto 0.7 K/mm3 (0.1-0.6); Monocytes Percent Auto 4.9 % (2.6-8.5); Neutrophils Absolute Auto 12.8 K/mm3 (1.3-6.7); Neutrophils Percent Auto 87.8 % (45.5-73.1); Platelet Count Result 248 k/mm3 (150-375); Red Blood Count 4.75 M/mm3 (4.6-6.20); Red Cell Distribution Width 21.2 % (11.5-14.5); White Blood Count 14.5 K/mm3 (4.5-10.0)
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
[2023-03-26 19:58] LABS: Alanine Aminotransferase 26 U/L (6-50); Albumin Level 4.1 g/dL (3.5-5.1); Alkaline Phosphatase 134 U/L (38-126); Anion Gap 6 mmol/L (8-16); Aspartate Amino Transferase 19 U/L (17-59); Bilirubin,Total 0.9 mg/dL (0.2-1.3); Blood Urea Nitrogen 18 mg/dL (9-20); CRP 1.7 mg/dL (<1.0); Calcium 9.3 mg/dL (8.4-10.2); Carbon Dioxide 29 mmol/L (22-30); Chloride 97 mmol/L (98-107); Estimated CRCL calculation 138 ml/min; Estimated Glomerular Filt Rate > 60; Glucose 298 mg/dL (65-110); Lipase 101 U/L (23-300); Potassium 3.7 mmol/L (3.4-5.0); Sodium 132 mmol/L (137-145)
[2023-03-26 20:02] LABS: Anisocytosis 1+ (NORMAL); Hypochromasia 1+ (NORMAL); Microcytosis 1+ (NORMAL); Ovalocytes 1+ (NORMAL); Platelet Estimate Adequate (Adequate)
[2023-03-26 20:03] LABS: Schistocytes None Seen (NORMAL)
[2023-03-26 22:01] LABS: Procalcitonin 0.1 ng/mL
[2023-03-26] MEDS: HYDROmorphone HCL INJ (*CRX) 1 MG/ML SYR IV PUSH (22:10)
[2023-03-26] MEDS: methylPREDNISolone SOD SUCC 125 MG VIAL IV PUSH (22:10)
[2023-03-26 23:00] VITALS: BP 140/89; PULSE 100; RESP 20; O2SAT 98
== END 2023-03-26 23:00 | disposition home or self-care (01) ==
PROVIDERS: Student in an Organized Health Care Education/Training Program; Emergency Provider Emergency Medicine
DX: K52.9 Noninfective gastroenteritis and colitis, unspecified (principal)
CPT/HCPCS: 36415; 74176; 80053; 83690; 84145; 85025; 86140; 96361; 96374; 96375; 96376; 99284; J1170; J2270; J2405; J2930; J7030

== ENCOUNTER 2023-04-02 15:59 | Emergency (ER) | payer MEDICAID, SELFPAY ==
--- NOTE | ~2023-04-02 | XR_ITS ---
EXAM: XR abdomen obstructive series DATE: 04/02/2023 19:05 HISTORY: eval for perforation, obstruction, or toxic megaco . COMPARISON: CT abdomen pelvis 03/26/2023. FINDINGS: Clear lung bases. IVC filter. No free air. Sigmoid anastomosis. Cholecystomy clips. Anasto mosis in the right lower quadrant. Normal bowel gas pattern. No organomegaly. No abnormal abdominal c alcification. Regional bones and soft tissues normal for age. IMPRESSION: No radiographic evidence of obstruction or ileus. Reviewed, dictated and finalized at location K. RECOVERY PLANNER
[2023-04-02 16:23] VITALS: BP 133/112; PULSE 102; RESP 19; TEMP 37.4; O2SAT 100
--- NOTE | 2023-04-02 17:51 | ED.ABDPAIN ---
HPI - Abdominal Pain General Chief Complaint: Abdominal Pain Stated Complaint: ab pain, nausea, vomiting Time Seen by Provider: 04/02/23 17:41 Source: patient Limitations: no limitations History of Present Illness HPI narrative: This is a 38-year-old male with a history ulcerative colitis status post total colectomy with subsequent reversal who presents with abdominal pain. He has been having nearly weekly flares of his ulcerative colitis. He states flares have been occurring frequently lately and is often better with a course of 5-7 days of steroids. 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 His last colonoscopy was there 2 weeks ago. Does have 8 in left of his sigmoid colon which is the only portion of the colon that remains. He has had 2010 bloody bowel movements and 6 episodes of emesis today. Related Data Allergies Allergy/AdvReac Type Severity Reaction Status Date / Time iohexol Allergy Severe Anaphylaxis Verified 03/23/23 23:03 [From contrast - CT, X-RAY] Sulfa (Sulfonamide Allergy Dyspnea / Verified 03/23/23 23:03 Antibiotics) SOB dicyclomine [From Bentyl] AdvReac Dyspnea / Verified 03/23/23 23:03 SOB ketorolac [From Toradol] AdvReac Dyspnea / Verified 03/23/23 23:03 SOB lorazepam [From Ativan] AdvReac Dyspnea / Verified 03/23/23 23:03 SOB meperidine [From Demerol] AdvReac Dyspnea / Verified 03/23/23 23:03 SOB metoclopramide [From Reglan] AdvReac Dyspnea / Verified 03/23/23 23:03 SOB prochlorperazine AdvReac Dyspnea / Verified 03/23/23 23:03 [From Compazine] SOB promethazine [From Phenergan] AdvReac Dyspnea / Verified 03/23/23 23:03 SOB [facility] Past Medical History Medical History (Updated 04/03/23 @ 00:00 by Chauncey Castellon) Abdominal fistula Pulmonary embolism Ulcerative colitis Surgical History Surgical History (Updated 04/02/23 @ 18:21 by Teri Rodriguez MD) H/O total colectomy s/p reversal Social History Social History (Updated 04/02/23 @ 18:22 by Teri Rodriguez MD) Additional living arrangements comments: Has 5 children and a partner Occupation/Education: occupation Additional occupation/education comments: 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 Exam Narrative: GENERAL: Well-appearing, well-nourished, and in no acute distress. HEAD: Normocephalic, atraumatic. EYES: Non injected, non icteric. No conjunctival pallor ENT: Nares clear, no rhinorrhea or epistaxis. Tacky mucous membranes NECK: Supple. CHEST: speaks in complete sentences. No respiratory distress. HEART: initially mildly tachycardic rate and rhythm. . ABDOMEN: Obese, protuberant, Soft, nondistended. TTP especially in RLQ but without rigidity or guarding. Not peritoneal. Well healed midline surgical scar. EXTREMITIES: Normal range of motion. No edema. SKIN: Warm, dry, no rash. NEURO: No focal deficits. Alert and oriented x3. PSYCH: Normal mood and affect. Course Vital Signs Vital signs: Vital Signs Temperature 99.3 F 04/02/23 16:23 Pulse Rate 102 H 04/02/23 16:23 Respiratory Rate 19 04/02/23 16:23 Blood Pressure 133/112 H 04/02/23 16:23 Pulse Oximetry 100 04/02/23 16:23 Temperature 98.1 F 04/02/23 19:59 Pulse Rate 99 04/02/23 19:59 Respiratory Rate 20 04/02/23 19:59 Blood Pressure 133/94 H 04/02/23 19:59 Pulse Oximetry 100 04/02/23 19:59 MDM - Abdominal Pain MDM Narrative Medical decision making narrative: This is a 38-year-old male past medical history surgical status post total colectomy subsequent reversal who presents with 22 bloody bowel movements and 6 episodes of emesis. He believes he is in the midst of another flare which he is now having nearly weekly. Patient does have slight tenderness palpation the right upper quadrant without rigidity or peritoneal signs. We did spend extensive time doing shared decision making about the ne
[2023-04-02 18:37] LABS: Basophils Percent Auto 0.3 % (0.2-1.2); Eosinophils Absolute Auto 0.1 K/mm3 (0-0.3); Eosinophils Percent Auto 0.5 % (0-4.4); Hematocrit 35.8 % (42.0-52.0); Immature Granulocyte Absolute 0.15 K/mm3 (0.00-0.031); Immature Granulocyte Percent A 1.3 % (0-0.5); Lymphocytes Absolute Auto 1.29 K/mm3 (0.9-3.2); Lymphocytes Percent Auto 11.2 % (18.3-44.2); Mean Corpuscular HGB Conc 27.9 g/dl (32-36); Mean Corpuscular Hemoglobin 21.4 pg (26-34); Mean Corpuscular Volume 76.5 fl (80-100); Mean Platelet Volume 10.7 fl (7.4-10.4); Monocytes Absolute Auto 0.7 K/mm3 (0.1-0.6); Monocytes Percent Auto 6.3 % (2.6-8.5); Neutrophils Absolute Auto 9.3 K/mm3 (1.3-6.7); Neutrophils Percent Auto 80.4 % (45.5-73.1); Nucleated Red Blood Cells Perc 0.2 % (0.0-0.2); Platelet Count Result 266 k/mm3 (150-375); Red Blood Count 4.68 M/mm3 (4.6-6.20); White Blood Count 11.5 K/mm3 (4.5-10.0)
[2023-04-02] MEDS: SODIUM CHLORIDE 0.9% IV 1,000 ML 999 ML IV CONT (18:39)
[2023-04-02] MEDS: ONDANSETRON INJ 4 MG/2 ML VIAL IV PUSH (18:40)
[2023-04-02] MEDS: methylPREDNISolone SOD SUCC 125 MG VIAL IV PUSH (18:43)
[2023-04-02] MEDS: diphenhydrAMINE HCl INJ 50 MG/ML VIAL 25 MG IV PUSH (18:45)
[2023-04-02] MEDS: HYDROmorphone HCL INJ (*CRX) 1 MG/ML SYR IV PUSH (18:46)
[2023-04-02 18:49] LABS: Alanine Aminotransferase 26 U/L (6-50); Albumin Level 3.9 g/dL (3.5-5.1); Alkaline Phosphatase 153 U/L (38-126); Anion Gap 7 mmol/L (8-16); Aspartate Amino Transferase 26 U/L (17-59); Bilirubin,Total 0.6 mg/dL (0.2-1.3); Blood Urea Nitrogen 16 mg/dL (9-20); Calcium 8.9 mg/dL (8.4-10.2); Carbon Dioxide 28 mmol/L (22-30); Chloride 101 mmol/L (98-107); Estimated CRCL calculation 162 ml/min; Estimated Glomerular Filt Rate > 60; Glucose 137 mg/dL (65-110); Potassium 3.9 mmol/L (3.4-5.0); Sodium 136 mmol/L (137-145)
[2023-04-02 18:51] LABS: CRP 0.5 mg/dL (<1.0)
[2023-04-02 18:52] LABS: Anisocytosis 1+ (NORMAL); Hypochromasia 1+ (NORMAL); Platelet Estimate Adequate (Adequate)
[2023-04-02 18:53] LABS: Ovalocytes 1+ (NORMAL); Schistocytes None Seen (NORMAL); Target Cells 1+ (NORMAL)
[2023-04-02 19:13] LABS: Erythrocyte Sedimentation Rate 19 mm/hr (0-20)
[2023-04-02 19:59] VITALS: BP 133/94; PULSE 99; RESP 20; TEMP 36.7; O2SAT 100
[2023-04-02] MEDS: MORPHINE SULFATE (*CRX) 4 MG/ML INJ IV PUSH (20:06)
== END 2023-04-02 20:06 | disposition home or self-care (01) ==
PROVIDERS: Emergency Provider Student in an Organized Health Care Education/Training Program
DX: K51.90 Ulcerative colitis, unspecified, without complications (principal); Z86.711 Personal history of pulmonary embolism; Z90.49 Acquired absence of other specified parts of digestive tract
CPT/HCPCS: 36415; 74019; 80053; 85025; 85652; 86140; 96361; 96374; 96375; 99284; J1170; J1200; J2270; J2405; J2930; J7030

== ENCOUNTER 2023-04-17 22:10 | Emergency (ER) | payer MEDICAID, SELFPAY ==
[2023-04-17 22:12] VITALS: BP 141/57; PULSE 118; RESP 25; TEMP 36.7; O2SAT 97
--- NOTE | 2023-04-18 03:10 | PC.NURSE ---
Called for room, no answer.
== END 2023-04-17 22:20 | disposition left against medical advice (07) ==
LOC: ANHED 04-18 04:34
DX: R11.2 Nausea with vomiting, unspecified (principal)
CPT/HCPCS: 99199

== ENCOUNTER 2023-05-13 18:14 | Emergency (ER) | payer MEDICAID, SELFPAY ==
--- NOTE | ~2023-05-13 | CT_ITS ---
EXAMINATION: CT abdomen pelvis wo con DATE: 05/13/2023 20:02 INDICATION: Right lower quadrant abdominal pain TECHNIQUE: Computed tomography (CT) of the abdomen and pelvis was performed without intravenous contr ast. Automated exposure control and iterative reconstruction technique were employed. The dose-length product was 1816.34 mGy-cm. COMPARISON: None FINDINGS: Lung bases are clear. Heart size is normal. No pericardial or pleural effusion. Cholecystectomy clips the gallbladder fossa. Liver, spleen and pancreas, bilateral adrenal glands are normal. Prior bowel surgery which includes a partial colectomy with ileocolic anastomosis in the right abdomen. There are additional anastomotic suture lines along a segment of small bowel in the right abdomen and along th e distal colon in the pelvis. Several of the loops of bowel extending into a moderate-sized widemouth ed ventral hernia. No bowel obstruction. Bladder is normal. No free intraperitoneal gas or fluid. No pathologically enlarged abdominal or pelvic lymphadenopathy. Infrarenal IVC filter. Moderate disc hei ght loss at L5-S1. Otherwise mild spondylosis more cephalad lumbar and lower thoracic spine. IMPRESSION: 1. No acute intra-abdominal/pelvic process. 2. Postoperative changes with 3 separate anastomotic suture lines along the bowels including a likely ileocolic anastomosis post partial colectomy. 3. Several loops of nonobstructed bowel extending into a moderate-sized widemouthed ventral hernia. Reviewed, dictated and finalized at location A. [employer] YEAR OLDS [employer] IMPRESSION: 1. No acute intra-abdominal/pelvic process. 2. Postoperative changes with 3 separate anastomotic suture lines along the bow els including a likely ileocolic anastomosis post partial colectomy. 3. Several loops of nonobstructed bowel extending into a moderate-sized widemou thed ventral hernia.
[2023-05-13 18:16] VITALS: BP 135/89; PULSE 126; RESP 24; TEMP 36.2; O2SAT 100
--- NOTE | 2023-05-13 18:19 | ED.ABDPAIN ---
HPI - Abdominal Pain General Chief Complaint: Abdominal Pain <Marisol Malone PA-C - Last Filed: 05/13/23 21:08> Stated Complaint: abd pain, n/v/d <Marisol Malone PA-C - Last Filed: 05/13/23 21:08> Time Seen by Provider: 05/13/23 18:19 <Marisol Malone PA-C - Last Filed: 05/13/23 21:08> Focused HPI: This is a 38 year old male that presents to the ER for right lower quadrant pain. Ongoing over the last several hours. Reports nausea, vomiting and diarrhea. Reports complex abdominal surgical history. Reports bright red blood in his stool. GENERAL: Well-appearing, well-nourished, uncomfortable HEAD: Normocephalic, atraumatic. CHEST: Clear to auscultation. ?No respiratory distress. HEART: Regular rate and rhythm.? GASTROINTESTINAL: Tender to palpation in the right lower quadrant NEURO: ?Alert and oriented x3. Patient screened in triage and initial orders placed.? ?Additional care and disposition to be based upon?diagnostic testing and treatment. <Marisol Malone PA-C - Last Filed: 05/13/23 21:08> Source: patient <Marisol Malone PA-C - Last Filed: 05/13/23 21:08> Mode of arrival: ambulatory <Marisol Malone PA-C - Last Filed: 05/13/23 21:08> Limitations: no limitations <Marisol Malone PA-C - Last Filed: 05/13/23 21:08> History of Present Illness HPI narrative: patient is a 38-year-old male with history of ulcerative colitis who underwent partial colectomy with J-pouch. He has intermittent flares still. 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 He is base status [facility]. He is on his way back home when pain began to occur. He has some nausea but no vomiting. No fevers or chills or sweats. He has without diarrhea. Patient also ran out of his insulin is curious what his glucose level may be. <Delroy Fields MD - Last Filed: 05/13/23 20:49> Related Data Allergies/Adverse Reactions: Allergies Allergy/AdvReac Type Severity Reaction Status Date / Time iohexol Allergy Severe Anaphylaxis Verified 03/23/23 23:03 [From contrast - CT, X-RAY] Sulfa (Sulfonamide Allergy Dyspnea / Verified 03/23/23 23:03 Antibiotics) SOB dicyclomine [From Bentyl] AdvReac Dyspnea / Verified 03/23/23 23:03 SOB ketorolac [From Toradol] AdvReac Dyspnea / Verified 03/23/23 23:03 SOB lorazepam [From Ativan] AdvReac Dyspnea / Verified 03/23/23 23:03 SOB meperidine [From Demerol] AdvReac Dyspnea / Verified 03/23/23 23:03 SOB metoclopramide [From Reglan] AdvReac Dyspnea / Verified 03/23/23 23:03 SOB prochlorperazine AdvReac Dyspnea / Verified 03/23/23 23:03 [From Compazine] SOB promethazine [From Phenergan] AdvReac Dyspnea / Verified 03/23/23 23:03 SOB <Marisol Malone PA-C - Last Filed: 05/13/23 21:08> Review of Systems Review of Systems: All systems reviewed & are unremarkable except as noted in HPI and below <Delroy Fields MD - Last Filed: 05/13/23 20:49> Constitutional: Constitutional: Reports no additional constitutional complaints <Delroy Fields MD - Last Filed: 05/13/23 20:49> ENT: Reports system reviewed and no additional complaints, except as documented <Delroy Fields MD - Last Filed: 05/13/23 20:49> Cardiovascular: Cardiovascular: Reports no additional cardiovascular complaints <Delroy Fields MD - Last Filed: 05/13/23 20:49> Respiratory: Respiratory: Reports no additional respiratory complaints <Delroy Fields MD - Last Filed: 05/13/23 20:49> Gastrointestinal: Gastrointestinal: Reports abdominal pain, Denies diarrhea, Reports nausea and Denies vomiting <Delroy Fields MD - Last Filed: 05/13/23 20:49> Genitourinary: Genitourinary: Reports no additional male genitourinary complaints <Delroy Fields MD - Last Filed: 05/13/23 20:49> [facility] Past Medical History Medical History: Medical History (Updated 05/13/23 @ 20:45 by Delroy Fields MD) Abdominal fistula Pulmonary embolism
[2023-05-13 18:48] LABS: Basophils Percent Auto 0.2 % (0.2-1.2); Eosinophils Absolute Auto 0.1 K/mm3 (0-0.3); Eosinophils Percent Auto 0.5 % (0-4.4); Hematocrit 36.1 % (42.0-52.0); Hemoglobin 10.3 g/dL (14.0-18.0); Immature Granulocyte Absolute 0.07 K/mm3 (0.00-0.031); Immature Granulocyte Percent A 0.6 % (0-0.5); Lymphocytes Absolute Auto 1.13 K/mm3 (0.9-3.2); Lymphocytes Percent Auto 9.5 % (18.3-44.2); Mean Corpuscular HGB Conc 28.5 g/dl (32-36); Mean Corpuscular Hemoglobin 22.2 pg (26-34); Mean Corpuscular Volume 77.8 fl (80-100); Mean Platelet Volume 11.3 fl (7.4-10.4); Monocytes Absolute Auto 0.6 K/mm3 (0.1-0.6); Monocytes Percent Auto 5.2 % (2.6-8.5); Platelet Count Result 222 k/mm3 (150-375); Red Blood Count 4.64 M/mm3 (4.6-6.20); Red Cell Distribution Width 21.3 % (11.5-14.5); White Blood Count 11.9 K/mm3 (4.5-10.0)
[2023-05-13 18:59] LABS: Alanine Aminotransferase 27 U/L (6-50); Albumin Level 3.8 g/dL (3.5-5.1); Alkaline Phosphatase 127 U/L (38-126); Anion Gap 9 mmol/L (8-16); Aspartate Amino Transferase 20 U/L (17-59); Bilirubin,Total 0.6 mg/dL (0.2-1.3); Blood Urea Nitrogen 13 mg/dL (9-20); Calcium 8.6 mg/dL (8.4-10.2); Carbon Dioxide 23 mmol/L (22-30); Chloride 106 mmol/L (98-107); Estimated CRCL calculation 145 ml/min; Estimated Glomerular Filt Rate > 60; Glucose 153 mg/dL (65-110); INR 1.2; Lipase 113 U/L (23-300); Potassium 3.9 mmol/L (3.4-5.0); Prothrombin Time 15.7 Seconds (11.1-14.7); Sodium 138 mmol/L (137-145)
[2023-05-13 19:00] LABS: Partial Thromboplastin Time 27.4 SECONDS (22.3-36.8)
[2023-05-13 19:15] LABS: Hypochromasia 1+ (NORMAL); Platelet Estimate Adequate (Adequate); Schistocytes None Seen (NORMAL)
[2023-05-13 19:16] LABS: Anisocytosis 3+ (NORMAL); Microcytosis 1+ (NORMAL)
[2023-05-13 19:24] LABS: Influenza A QL RT-PCR Negative (Negative); Influenza B QL RT-PCR Negative (Negative); SARS-CoV-2 RNA PCR Negative (Negative)
[2023-05-13] MEDS: SODIUM CHLORIDE 0.9% IV 1,000 ML 999 ML IV CONT (19:48)
[2023-05-13] MEDS: methylPREDNISolone SOD SUCC 40 MG VIAL IV PUSH (19:49)
[2023-05-13] MEDS: ONDANSETRON INJ 4 MG/2 ML VIAL IV PUSH ×2 (19:49→20:37)
[2023-05-13] MEDS: MORPHINE SULFATE (*CRX) 4 MG/ML INJ IV PUSH (19:50)
[2023-05-13 19:54] VITALS: BP 138/72; PULSE 95; RESP 22; TEMP 36.6; O2SAT 99
--- NOTE | 2023-05-13 20:33 | ED.ABDPAIN ---
HPI - Abdominal Pain General Chief Complaint: Abdominal Pain Stated Complaint: abd pain, n/v/d Time Seen by Provider: 05/13/23 18:19 Source: patient Mode of arrival: ambulatory Limitations: no limitations History of Present Illness HPI narrative: patient is a 38-year-old male who presents ER with right lower quadrant abdominal pain. He has history of Crohn's disease and has a J-pouch. He still gets intermittent flares. Pain began earlier today. He has nausea without vomiting. No diarrhea. Related Data Allergies Allergy/AdvReac Type Severity Reaction Status Date / Time iohexol Allergy Severe Anaphylaxis Verified 03/23/23 23:03 [From contrast - CT, X-RAY] Sulfa (Sulfonamide Allergy Dyspnea / Verified 03/23/23 23:03 Antibiotics) SOB dicyclomine [From Bentyl] AdvReac Dyspnea / Verified 03/23/23 23:03 SOB ketorolac [From Toradol] AdvReac Dyspnea / Verified 03/23/23 23:03 SOB lorazepam [From Ativan] AdvReac Dyspnea / Verified 03/23/23 23:03 SOB meperidine [From Demerol] AdvReac Dyspnea / Verified 03/23/23 23:03 SOB metoclopramide [From Reglan] AdvReac Dyspnea / Verified 03/23/23 23:03 SOB prochlorperazine AdvReac Dyspnea / Verified 03/23/23 23:03 [From Compazine] SOB promethazine [From Phenergan] AdvReac Dyspnea / Verified 03/23/23 23:03 SOB PMFSH Past Medical History Medical History (Updated 05/13/23 @ 20:45 by Delroy Fields MD) Abdominal fistula Pulmonary embolism Ulcerative colitis Surgical History Surgical History (Updated 04/02/23 @ 18:21 by Teri Rodriguez MD) H/O total colectomy s/p reversal Social History Social History (Updated 04/02/23 @ 18:22 by Teri Rodriguez MD) Additional living arrangements comments: Has 5 children and a partner Occupation/Education: occupation Additional occupation/education comments: 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 Exam Narrative: GENERAL: Well-appearing, well-nourished, and in no acute distress. HEAD: Normocephalic, atraumatic. ENT: Mucous membranes moist. NECK: Supple. CHEST: Clear to auscultation. No respiratory distress. HEART: Regular rate and rhythm. Normal peripheral pulses. ABDOMEN: Soft, nontender, nondistended. EXTREMITIES: Normal range of motion. No edema. SKIN: Warm, dry, no rash. NEURO: Alert and oriented x3. PSYCH: Normal mood and affect. Course Vital Signs Vital signs: Vital Signs Temperature 97.1 F L 05/13/23 18:16 Pulse Rate 126 H 05/13/23 18:16 Respiratory Rate 24 H 05/13/23 18:16 Blood Pressure 135/89 05/13/23 18:16 Pulse Oximetry 100 05/13/23 18:16 Oxygen Delivery Room Air 05/13/23 18:16 Temperature 97.9 F 05/13/23 20:58 Pulse Rate 75 05/13/23 20:58 Respiratory Rate 21 H 05/13/23 20:58 Blood Pressure 135/75 05/13/23 20:58 Pulse Oximetry 99 05/13/23 20:58 Oxygen Delivery Room Air 05/13/23 18:16 MDM - Abdominal Pain Lab Data 05/13/23 18:32 05/13/23 18:32 Labs: Lab Results 05/13/23 Range/Units 18:32 WBC 11.9 H (4.5-10.0) K/mm3 RBC 4.64 (4.6-6.20) M/mm3 Hgb 10.3 L (14.0-18.0) g/dL Hct 36.1 L (42.0-52.0) % MCV 77.8 L (80-100) fl MCH 22.2 L (26-34) pg MCHC 28.5 L (32-36) g/dl RDW 21.3 H (11.5-14.5) % Plt Count 222 (150-375) k/mm3 MPV 11.3 H (7.4-10.4) fl Immature Gran % (Auto) 0.6 H (0-0.5) % Neut % (Auto) 84.0 H (45.5-73.1) % Lymph % (Auto) 9.5 L (18.3-44.2) % [place] % (Auto) 5.2 (2.6-8.5) % Eos % (Auto) 0.5 (0-4.4) % Baso % (Auto) 0.2 (0.2-1.2) % Lymph # (Auto) 1.13 (0.9-3.2) K/mm3 [place] # (Auto) 0.6 (0.1-0.6) K/mm3 Eos # (Auto) 0.1 (0-0.3) K/mm3 Baso # (Auto) 0.0 (0.0-0.1) K/mm3 Abs Immat Gran (auto) 0.07 H (0.00-0.031) K/mm3 Absolute Neuts (auto) 10.0 H (1.3-6.7) K/mm3 Absolute Nucleated RBC 0.0 (0.0-0.012) K/mm3 Nucleated RBC % 0.0 (0.0-0.2) % Platelet Estimate Adequate (Adequate) H
[2023-05-13 20:58] VITALS: BP 135/75; PULSE 75; RESP 21; TEMP 36.6; O2SAT 99
== END 2023-05-13 20:59 | disposition home or self-care (01) ==
PROVIDERS: Physician Assistant; Emergency Provider Emergency Medicine
DX: R10.31 Right lower quadrant pain (principal); G89.29 Other chronic pain; Z20.822 Contact with and (suspected) exposure to COVID-19; K51.90 Ulcerative colitis, unspecified, without complications
CPT/HCPCS: 36415; 74176; 80053; 83690; 85025; 85610; 85730; 87636; 96361; 96374; 96375; 96376; 99284; J2270; J2405; J2920; J7030

== ENCOUNTER 2023-06-10 06:55 | Emergency (ER) | payer MEDICAID, SELFPAY ==
[2023-06-10 07:13] VITALS: BP 151/88; PULSE 108; RESP 16; TEMP 36.6; O2SAT 100
--- NOTE | 2023-06-10 07:41 | ED.ABDPAIN ---
HPI - Abdominal Pain General Chief Complaint: Abdominal Pain Stated Complaint: abdominal pain, n/v/d Time Seen by Provider: 06/10/23 07:21 History of Present Illness HPI narrative: Patient is a 38-year-old male with history of Ulcerative colitis that presents ER with reports of nausea vomiting. Reports he had a scope 13 days ago that showed he was having a flare and he was placed on prednisone. 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 He has not been able to keep down his prednisone due to nausea and vomiting that is curved. It is causing stomach cramping. No fevers or chills or sweats. He is having bowel movements. Related Data Allergies Allergy/AdvReac Type Severity Reaction Status Date / Time iohexol Allergy Severe Anaphylaxis Verified 06/10/23 07:15 [From contrast - CT, X-RAY] Sulfa (Sulfonamide Allergy Dyspnea / Verified 06/10/23 07:15 Antibiotics) SOB dicyclomine [From Bentyl] AdvReac Dyspnea / Verified 06/10/23 07:15 SOB ketorolac [From Toradol] AdvReac Dyspnea / Verified 06/10/23 07:15 SOB lorazepam [From Ativan] AdvReac Dyspnea / Verified 06/10/23 07:15 SOB meperidine [From Demerol] AdvReac Dyspnea / Verified 06/10/23 07:15 SOB metoclopramide [From Reglan] AdvReac Dyspnea / Verified 06/10/23 07:15 SOB prochlorperazine AdvReac Dyspnea / Verified 06/10/23 07:15 [From Compazine] SOB promethazine [From Phenergan] AdvReac Dyspnea / Verified 06/10/23 07:15 SOB Review of Systems Review of Systems: All systems reviewed & are unremarkable except as noted in HPI and below Constitutional: Constitutional: Reports no additional constitutional complaints Cardiovascular: Cardiovascular: Reports no additional cardiovascular complaints Respiratory: Respiratory: Reports no additional respiratory complaints Gastrointestinal: Gastrointestinal: Reports abdominal pain, Reports diarrhea, Reports nausea and Reports vomiting Genitourinary: Genitourinary: Reports no additional male genitourinary complaints Musculoskeletal: Musculoskeletal: Reports no additional musculoskeletal complaints PMFSH Past Medical History Medical History (Updated 06/10/23 @ 07:45 by Delroy Fields MD) Abdominal fistula Pulmonary embolism Ulcerative colitis Surgical History Surgical History (Updated 06/10/23 @ 07:45 by Delroy Fields MD) History of partial colectomy Social History Social History (Updated 04/02/23 @ 18:22 by Teri Rodriguez MD) Additional living arrangements comments: Has 5 children and a partner Occupation/Education: occupation Additional occupation/education comments: 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 HEAD: Normocephalic, atraumatic. ENT: Mucous membranes moist. CHEST: Clear to auscultation. No respiratory distress. HEART: Regular rate and rhythm. Normal peripheral pulses. ABDOMEN: Soft, nontender, nondistended. EXTREMITIES: Normal range of motion. No edema. NEURO: Alert and oriented x3. PSYCH: Normal mood and affect. Course Course Emergency Course: -Course: patient declined blood work an IV and would only like an oral Zofran. -Co-morbidities complicating care: Morbid obesity and partial colectomy, inflammatory bowel disease. 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 -External Chart Review: This is the patient's 12th visit in the last 5 months. I have reviewed his charts from previous visits. Patient has not had any evidence of an actual flare on any imaging. -Hx from independent Sources: Patient -Independent interpretation of studies: no testing performed due to patient request. -Interventions: Patient given oral Zofran 4 mg. -Shared decision making / Disposition: Discharge home with prescription for Zofran 4 mg. I have strong suspicions that this patient is drug seeking.
[2023-06-10] MEDS: ONDANSETRON HCL ODT 4 MG TABLET (07:45)
--- NOTE | 2023-06-10 07:50 | PC.NURSE ---
Refusing IV or labwork.
== END 2023-06-10 07:59 | disposition home or self-care (01) ==
LOC: ANHED 07:48
PROVIDERS: Emergency Provider Emergency Medicine
DX: R11.2 Nausea with vomiting, unspecified (principal); K51.90 Ulcerative colitis, unspecified, without complications; Z86.711 Personal history of pulmonary embolism; Z90.49 Acquired absence of other specified parts of digestive tract
CPT/HCPCS: 99283; A9270